=== PATIENT | male | born 1930 | race Hispanic/Latino ===

== ENCOUNTER 2018-08-17 13:59 | Inpatient (IN) | payer MEDICARE, OTHER ==
--- NOTE | 2018-08-17 14:33 | ED PDOC ---
Lower Extremity Pain/Injury Time Seen by Provider: 08/17/18 14:15 Chief Complaint (Nursing): Shortness Of Breath History Per: Family Onset/Duration Of Symptoms: Days (2) Current Symptoms Are (Timing): Still Present Severity: Moderate Additional Complaint(s): Bilat lower ext swelling assoc with SOB worse over past 2 days. 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 Denies chest pain or fever. Past Medical History - Medical History PMH: Anemia, Benign Prostatic Hyperplasia (s), Cardia Arrhythmia, HTN, Hyper cholesterolemia, Chronic Kidney Disease Denies: HIV - Family History Family History: States: Unknown Family Hx - Home Medications Home Medications: Ambulatory Orders Medication Instructions Recorded RX: Aspirin [Ecotrin] 81 mg PO DAILY 07/09/18 RX: Calcitriol [Rocaltrol] 0.25 mcg PO DAILY 07/09/18 RX: Ergocalciferol (Vitamin D2) 50,000 unit PO QWK 07/09/18 [Vitamin D2] RX: Febuxostat [Uloric] 40 mg PO DAILY 07/09/18 RX: Ferrous Sulfate [Feosol] 325 mg PO DAILY 07/09/18 RX: Folic Acid 1 mg PO BID 07/09/18 RX: Hydroxyurea [Hydrea] 500 mg PO ASDIR 07/09/18 RX: Mexiletine 300 mg PO Q8 07/09/18 RX: [place]-3 Fatty Acids/Fish Oil 1 gm PO Q12 07/09/18 [Fish Oil 1,000 mg Capsule] RX: Sevelamer Carbonate [Renvela] 800 mg PO TID 07/09/18 RX: Tamsulosin [Flomax] 0.4 mg PO DAILY 07/09/18 RX: Triamterene/Hydrochlorothiazid 1 cap PO DAILY 07/09/18 [Triamterene-Hctz 37.5-25 mg Cp] RX: Isosorbide Mononitrate ER 30 mg PO DAILY #30 tab 07/13/18 [Imdur ER] Cephalexin [cephalexin] 500 mg PO BID 7 Days #14 cap 08/20/18 RX: Carvedilol [Coreg] 3.125 mg PO Q12 tab 08/20/18 RX: Epoetin Den [Procrit] 4,000 unit SC MWF ml 08/20/18 RX: Finasteride [Proscar] 5 mg PO DAILY tab 08/20/18 RX: Furosemide [Lasix] 40 mg PO DAILY 30 Days #30 tab 08/20/18 RX: Vitamin B Complex/Vit C/Folic 1 tab PO DAILY tab 08/20/18 [Nephro-Terry] - Allergies Allergies/Adverse Reactions: Allergies Allergy/AdvReac Type Severity Reaction Status Date / Time No Known Allergies Allergy Verified 08/17/18 14:04 Review of Systems ROS Statement: Except As Marked, All Systems Reviewed And Found Negative Constitutional: Negative for: Fever Cardiovascular: Negative for: Chest Pain Respiratory: Positive for: Shortness of Breath Musculoskeletal: Positive for: Leg Pain Physical Exam - Reviewed Nursing Documentation Reviewed: Yes Vital Signs Reviewed: Yes - Physical Exam Appears: Positive for: Non-toxic, No Acute Distress Head Exam: Positive for: ATRAUMATIC, NORMAL INSPECTION, NORMOCEPHALIC Skin: Positive for: Normal Color, Warm, DRY Eye Exam: Positive for: EOMI, Normal appearance, PERRL ENT: Positive for: Normal ENT Inspection Neck: Positive for: Normal, Painless ROM Cardiovascular/Chest: Positive for: Regular Rate, Rhythm Respiratory: Positive for: Decreased Breath Sounds (Bases bilat) Gastrointestinal/Abdominal: Positive for: Normal Exam, Soft Back: Positive for: Normal Inspection Extremity: Positive for: Swelling (3+ pitting edema bilat extending to abd. Ulcers left calf with erythemato mid morrison bilat. No calf tenderness.) Neurologic/Psych: Positive for: Alert, Oriented - Laboratory Results Result Diagrams: 08/19/18 04:25 08/20/18 04:20 Disposition - Clinical Impression Clinical Impression: CHF (congestive heart failure), Chronic kidney disease, stage IV (severe), Cellulitis - Patient ED Disposition Is Patient to be Admitted: Transfer of Care - Disposition Disposition: Transfer of Care Disposition Time: 15:00 Condition: FAIR Patient Signed Over To: Jesus Hernandez
--- NOTE | 2018-08-17 15:24 | RAD ---
Date of service: 08/17/2018 HISTORY: cough COMPARISON: Chest radiograph dated 07/13/2018. FINDINGS: LUNGS: Pulmonary vascular congestion. Bibasilar atelectasis. PLEURA: Small bilateral pleural effusions. CARDIOVASCULAR: Aortic atherosclerotic calcifications. Cardiomediastinal silhouette stably enlarged. Pericardial effusion not excluded. OSSEOUS STRUCTURES: Unchanged. VISUALIZED UPPER ABDOMEN: Normal. OTHER FINDINGS: None. IMPRESSION: Pulmonary vascular congestion with small bilateral pleural effusions. Cardiomegaly with pericardial effusion not excluded.
[2018-08-17 15:49] LABS: BASO % 0.5 % (0.0-2.0); EOS % 0.2 % (0.0-4.0); HEMOGLOBIN 10.5 g/dL (12.0-18.0); LYMPH # 0.8 K/uL (1.0-4.3); LYMPH % 15.9 % (20.0-40.0); MEAN CELL VOLUME 101.7 fl (80.0-94.0); MEAN CORPUSCULAR HEMOGLOBIN 33.6 pg (27.0-31.0); MEAN PLATELET VOLUME 7.3 fl (7.2-11.7); MONO # 0.5 K/uL (0.0-0.8); NEUT # 3.9 K/uL (1.8-7.0); NEUT % 73.4 % (50.0-75.0); NRBC % 0.2 % (0.0-0.0); RBC 3.13 Mil/uL (4.40-5.90); RED CELL DISTRIBUTION WIDTH 17.5 % (11.5-14.5); WHITE BLOOD COUNT 5.3 K/uL (4.8-10.8)
[2018-08-17 16:07] LABS: ALB/GLOB RATIO 0.9 (1.0-2.1); ALBUMIN 3.3 g/dL (3.5-5.0); CALCIUM 8.9 mg/dL (8.4-10.2)
--- NOTE | 2018-08-17 18:02 | ED PDOC ---
- Laboratory Results Result Diagrams: 08/17/18 15:30 08/17/18 15:30 - ECG O2 Sat by Pulse Oximetry: 97 Pulse Ox Interpretation: Normal - Radiology X-Ray: Read By Radiologist X-Ray Interpretation: Cardiomegaly (AND PULM CONGESTION) - CT Scan/US US Other Rad Studies (CT/US): Read By Radiologist Other Rad Interpretation: no dvt - Progress ED Course And Treament: 1500: Took over care from Dr. Sherman. Felipe on labs and imaging. Here with leg swelling. 185: Stable. Will need admit for chf exac and cellulitis. Family states similar to previous. No chest pain. 1916: Stable. Spoke with Dr. Elliott. Will admit. Tele. Does not meet sepsis criteria. Disposition Counseled Patient/Family Regarding: Studies Performed, Diagnosis - Clinical Impression Clinical Impression: CHF (congestive heart failure), Chronic kidney disease, stage IV (severe), Cellulitis - POA Present On Arrival: None - Disposition Disposition: Admitted as In-Patient Disposition Time: 19:01 Condition: FAIR Forms: [employer] (Bulgarian)
[2018-08-17] MEDS ORDERED: Clindamycin 600mg/50ml NS 600 MG/50 ML BAG IVPB STA (18:55)
[2018-08-17 19:20] LABS: TROPONIN I 0.057 ng/mL (0.00-0.120)
[2018-08-17] MEDS ORDERED: Ergocalciferol 50,000 Intl Units Cap PO SCH (20:15)
[2018-08-17] MEDS ORDERED: Clindamycin 600mg/50ml D5W 600 MG/50 ML VIAL IVPB STA (20:20)
--- NOTE | 2018-08-17 20:34 | CP.PCM.HP ---
<Von Mae - Last Filed: 08/17/18 21:49> History of Present Illness - History of Present Illness History of Present Illness: 87 yo M with pmhx of Afib, severe CHF: systolic and diastolic dysfunction with EF of 15% and CKD presented to the ED with his son and due to progressive dyspnea and bilateral lower extremity swelling for the past 4 days. Son reports father has been reporting difficulty breathing with productive cough. He used to be ambulatory with a cane and walker while being seen by home care who also provides feet care twice a week, however, he has been refusing to get up from the couch only to use the restroom. Pt denies chest pain, recent fevers Pt denies history of heart catheterization; MT; stroke PMD: Dr. Cannon Nephro: Dr. Schuler Heme/Onc: Dr. Dorothy Cruz Urology: Dr. Ge Cardiology: Dr. Nieves Podiatry: Dr. Osvaldo Bustos hx: denies htn/dm Surg: none Soc: denies smoking, alcohol, illicit drugs; lives with Son (Irwin) and Rx: Reconciled NKDA Full code ED course: Vitals: 97.8, Pulse 93, BP: 132/88; RR: 16 95% on RA -CBC, CMP, Troponin -CXR, Venous Duplex, EKG, Urine dip -O2 nasal nasula, -Rx: ASA 325 mg PO X1, Clinda 600 mg IVPB; Lasix 40 mg IV once -Blood culture Present on Admission - Present on Admission Any Indicators Present on Admission: No History of DVT/PE: No History of Uncontrolled Diabetes: No Urinary Catheter: No Review of Systems - Cardiovascular Cardiovascular: Dyspnea. absent: Chest Pain - Respiratory Respiratory: Dyspnea Past Patient History - Past Medical History & Family History Past Medical History?: Yes - Past Social History Smoking Status: Former Smoker Chewing Tobacco Use: No Cigar Use: No Alcohol: None Drugs: Denies Home Situation {Lives}: With Family - CARDIAC Hx Cardia Arrhythmia: Yes Hx Hypercholesterolemia: Yes Hx Hypertension: Yes - PULMONARY Hx Respiratory Disorders: No - HEENT Hx HEENT Problems: Yes ([place]) - RENAL Hx Chronic Kidney Disease: Yes - HEMATOLOGICAL/ONCOLOGICAL Hx Anemia: Yes Hx Human Immunodeficiency Virus (HIV): No - MUSCULOSKELETAL/RHEUMATOLOGICAL Hx Falls: No - PSYCHIATRIC Hx Substance Use: No - SURGICAL HISTORY Hx Surgeries: Yes Other/Comment: circumcision - ANESTHESIA Hx Anesthesia: No Meds Allergies/Adverse Reactions: Allergies Allergy/AdvReac Type Severity Reaction Status Date / Time No Known Allergies Allergy Verified 08/17/18 14:04 Physical Exam - Constitutional Appears: Non-toxic, No Acute Distress - Eye Exam Eye Exam: EOMI - ENT Exam ENT Exam: Mucous Membranes Moist - Respiratory Exam Respiratory Exam: Rales. absent: Wheezes, Respiratory Distress - Cardiovascular Exam Cardiovascular Exam: Irregular Rhythm, +S1, +S2 - GI/Abdominal Exam GI & Abdominal Exam: Normal Bowel Sounds, Soft. absent: Tenderness Additional comments: lower abdominal anasarca - Extremities Exam Extremities exam: Positive for: pedal edema, tenderness, pedal pulses present. Negative for: calf tenderness Additional comments: Stasis dermatitis bilaterally extending to knees with mild cellulitis of L lower extremity below calf and skin abrasion with clear fluid discharge L lower extremity cranial to ankle with scarring measuring approximately 3-4 cm x 3-4 cm. - Neurological Exam Neurological exam: Abnormal Gait (with assistance), Alert, CN II-XII Intact - Psychiatric Exam Psychiatric exam: Normal Affect, Normal Mood - Skin Skin Exam: Abrasion, Erythema, Warm Results - Vital Signs Recent Vital Signs: Last Vital Signs Temp 97.8 F 08/17/18 14:31 Pulse 93 H 08/17/18 18:40 Resp 16 08/17/18 18:40 BP 130/74 08/17/18 20:18 Pulse Ox 97 08/17/18 19:18 - Labs Result Diagrams: 08/17/18 15:30 08/17/18 15:30 Labs: Laboratory Results - last 24 hr 08/17/18 08/17/18 15:30 15:30 WBC 5.3 RBC 3.13 L Hgb 10.5 L Hct 31.9 L MCV 101.7 H MCH 33.6 H MCHC 33.0 RDW 17.5 H Plt Count 263 MPV 7.3 Neut % (Auto) 73.4 Lymph % (Auto) 15.9 L [place] % (Auto) 10.0 Eos % (Auto) 0.2 Baso % (Auto) 0.5 Neut # (Auto) 3.9 Lymph # (Auto) 0.8 L [place] # (Auto) 0.5 Eos # (Auto) 0.0 Baso # (Auto) 0.0 Sodium 142 Potassium 4.8 Chloride 108 H Carbon Dioxide 24 Anion Gap 15 BUN 98 H Creatinine 2.6 H Est GFR ( Amer) 29 Est GFR (Non-Af Amer) 24 Random Glucose 116 H Calcium 8.9 Total Bilirubin 1.0 AST 39 ALT 28 Alkaline Phosphatase 104 Troponin I 0.0570 NT-Pro-B Natriuret Pep 61772 H Total Protein 6.9 Albumin 3.3 L Globulin 3.7 Albumin/Globulin Ratio 0.9 L Assessment & Plan - Assessment and Plan (Free Text) Assessment: 87 yo M with pmhx of Afib, severe CHF: systolic and diastolic dysfunction with EF of 15% and CKD admitted for sever CHF exacerbation. Severe CHF exacerbation: -Systolic and diastolic dysfunction -EF15% -s/p lasix iv 40 mg x2 -Admit to Tele -Start Lasix iv 40mg q8hr -Cardiology consulted: Dr. London; recommendations appreciated -heart heathy diet with 2g Na and fluid restriction to 1 L/ day -f/u blood culture, procalcitonin, Vitamin B12, BNP, TSH, Stasis dermatitis with mild cellulitis and skin tear -Podiatry consulted: Dr. Lorenzo; recommendations appreciated -Wound care -s/p ER: Clindamycin 300 mg ivpb q8 -Ancef 1 gm ivpb q12; renal adjusted -f/u blood culture, venous duplex Chronic Afib: -Family opted for no anticoagulation -Continue ASA, Imdur -Troponin neg x1; -f/u trops, PT/T AV Block: -Cardiology consulted: Dr. London; recommendations appreciated -Continue: Mexiletine CKD Stage 4: -Nephrology consulted: Dr. Schuler; recommendations appreciated -follow AM labs BPH: -Continue tamulosin, finasteride Low platelets: -Continue Hydroxyurea DVT prophylaxis: -Lovenox 30mg SC qDaily PT eval and treat Case dw Dr. Earl Mae MD PGY2 <Sarina Elliott - Last Filed: 08/17/18 21:52> Results - Vital Signs Recent Vital Signs: Last Vital Signs Temp 98 F 08/17/18 20:35 Pulse 95 H 08/17/18 20:35 Resp 16 08/17/18 21:08 BP 141/76 10/27/18 20:35 Pulse Ox 97 08/17/18 20:35 - Labs Result Diagrams: 08/17/18 15:30 08/17/18 15:30 Labs: Laboratory Results - last 24 hr 08/17/18 08/17/18 15:30 15:30 WBC 5.3 RBC 3.13 L Hgb 10.5 L Hct 31.9 L MCV 101.7 H MCH 33.6 H MCHC 33.0 RDW 17.5 H Plt Count 263 MPV 7.3 Neut % (Auto) 73.4 Lymph % (Auto) 15.9 L [place] % (Auto) 10.0 Eos % (Auto) 0.2 Baso % (Auto) 0.5 Neut # (Auto) 3.9 Lymph # (Auto) 0.8 L [place] # (Auto) 0.5 Eos # (Auto) 0.0 Baso # (Auto) 0.0 Sodium 142 Potassium 4.8 Chloride 108 H Carbon Dioxide 24 Anion Gap 15 BUN 98 H Creatinine 2.6 H Est GFR ( Amer) 29 Est GFR (Non-Af Amer) 24 Random Glucose 116 H Calcium 8.9 Total Bilirubin 1.0 AST 39 ALT 28 Alkaline Phosphatase 104 Troponin I 0.0570 NT-Pro-B Natriuret Pep 96855 H Total Protein 6.9 Albumin 3.3 L Globulin 3.7 Albumin/Globulin Ratio 0.9 L Attending/Attestation - Attestation I have personally seen and examined this patient.: Yes I have fully participated in the care of the patient.: Yes I have reviewed all pertinent clinical information: Yes
[2018-08-17] MEDS ORDERED: ceFAZolin IV 1 gm in Dextrose 1 GM/50 ML BAG IVPB ONE (23:02)
[2018-08-17] MEDS: ceFAZolin 1 GM in Sodium Chloride 0.9% 50 ML IVPB SCH (23:07)
[2018-08-17] MEDS: Omega-3-Acid Ethyl Esters 1 GM Cap PO SCH (23:08)
[2018-08-18] MEDS ORDERED: Clindamycin in NS 300 MG/50 ML BAG IVPB SCH (01:00)
[2018-08-18] MEDS ORDERED: ceFAZolin 1 GM in Sodium Chloride 0.9% 50 ML IVPB SCH (01:00)
[2018-08-18 07:54] LABS: BASO % 0.6 % (0.0-2.0); EOS % 0.4 % (0.0-4.0); HEMOGLOBIN 10.2 g/dL (12.0-18.0); LYMPH # 1.2 K/uL (1.0-4.3); LYMPH % 22.3 % (20.0-40.0); MEAN CELL VOLUME 101.5 fl (80.0-94.0); MEAN CORPUSCULAR HEMOGLOBIN 33.8 pg (27.0-31.0); MEAN CORPUSCULAR HGB CONC 33.3 g/dL (33.0-37.0); MEAN PLATELET VOLUME 7.5 fl (7.2-11.7); MONO # 0.7 K/uL (0.0-0.8); MONO % 11.9 % (0.0-10.0); NEUT # 3.5 K/uL (1.8-7.0); NEUT % 64.8 % (50.0-75.0); NRBC % 0.4 % (0.0-0.0); RBC 3.01 Mil/uL (4.40-5.90); RED CELL DISTRIBUTION WIDTH 17.4 % (11.5-14.5); WHITE BLOOD COUNT 5.5 K/uL (4.8-10.8)
[2018-08-18] MEDS: ceFAZolin 1 GM in Sodium Chloride 0.9% 50 ML IVPB SCH ×2 (08:18→21:57)
[2018-08-18 08:22] LABS: INR 1.6; PROTHROMBIN TIME 17.9 Seconds (9.8-13.1)
[2018-08-18] MEDS: Omega-3-Acid Ethyl Esters 1 GM Cap PO SCH ×2 (08:23→22:00)
[2018-08-18 08:24] LABS: PARTIAL THROMBOPLASTIN TIME 31.9 Seconds (25.6-37.1)
--- NOTE | 2018-08-18 08:36 | US ---
Date of service: 08/17/2018 PROCEDURE: Bilateral lower extremity venous duplex Doppler. HISTORY: Bilat swelling COMPARISON: Bilateral lower extremity venous duplex ultrasound performed 07/09/2018. TECHNIQUE: Bilateral common femoral, superficial femoral, popliteal and posterior tibial veins were evaluated. Flow was assessed with color Doppler, compressibility, assessment of phasic flow and augmentation response. FINDINGS: COMMON FEMORAL VEIN: Right CFV: Unremarkable. Left CFV: Unremarkable. SUPERFICIAL FEMORAL VEIN: Right SFV: Unremarkable. Left SFV: Unremarkable. POPLITEAL VEIN: Right Popliteal: Unremarkable. Left Popliteal: Unremarkable. POSTERIOR TIBIAL VEIN: Right PTV: Unremarkable. Left PTV: Unremarkable. OTHER FINDINGS: None. IMPRESSION: No evidence of deep venous thrombosis.
[2018-08-18 08:52] LABS: CALCIUM 8.7 mg/dL (8.4-10.2)
--- NOTE | 2018-08-18 09:17 | CP.PCM.PN ---
Addendum entered and electronically signed by Joycelyn Rodriguez MD 08/18/18 11:55: Patient seen and examined bedside. All chart and clinical data reviewed . Case discussed with resident . Agree with assessment and plan. Patient is elderly , frail male 87 y/o with extensive PMH HTN , CHF systolic dysfunction EF 15 % with guarded prognosis, chronic anemia,CKD stage IV , chronic Afib, LE stasis dermatitis presented with worsening dyspnea and edema of LE with erythema . Patient admitted to telemetry with CHF exacerbation and mild cellulitis of LE. At present feeling well Continue diuretics 40 Mgg IV Q18 hours He has a guarded prognosis due to comorbidities Continue IV Ancef for lower extremity cellulitis with stasis dermatitis Original Note: Subjective - Date & Time of Evaluation Date of Evaluation: 08/18/18 Time of Evaluation: 08:05 - Subjective Subjective: [place] serbian translation [id number] Patient seen and examined bedside walking with nurse coming from bathroom. Reports feeling better. Denies cough, SOB. Reports bilateral swelling legs but not pain. no overnight events. vs stable. Objective - Vital Signs/Intake and Output Vital Signs (last 24 hours): Temp Pulse Resp BP Pulse Ox 97.3 F L 86 18 124/82 99 08/18/18 08:00 08/18/18 08:24 08/18/18 08:00 08/18/18 08:24 08/18/18 08:00 Intake and Output: 08/18/18 08/18/18 06:59 18:59 Intake Total 50 Balance 50 - Medications Medications: Current Medications Aspirin (Ecotrin) 81 mg PO DAILY [facility] Last Admin: 08/18/18 08:20 Dose: 81 mg Calcitriol (Rocaltrol) 0.25 mcg PO DAILY [facility] Last Admin: 08/18/18 08:25 Dose: 0.25 mcg Enoxaparin Sodium (Lovenox) 30 mg SC DAILY [facility]; Protocol Ergocalciferol (Drisdol 50,000 Intl Units Cap) 1 cap PO QWK [facility] Ferrous Sulfate (Feosol) 325 mg PO DAILY [facility] Last Admin: 08/18/18 08:21 Dose: 325 mg Finasteride (Proscar) 5 mg PO DAILY [facility] Last Admin: 08/18/18 08:25 Dose: 5 mg Folic Acid (Folic Acid) 1 mg PO DAILY [facility] Last Admin: 08/18/18 08:21 Dose: 1 mg Furosemide (Lasix) 40 mg IV Q8 [facility] Last Admin: 08/18/18 08:22 Dose: 40 mg Home Med (Febuxostat [Uloric]) 40 mg PO DAILY [facility] Hydroxyurea (Hydrea) 500 mg PO DAILY [facility] Last Admin: 08/18/18 08:22 Dose: 500 mg Cefazolin Sodium 1 gm/ Sodium (Chloride) 50 mls @ 50 mls/hr IVPB Q12 [facility]; Protocol Last Admin: 08/18/18 08:18 Dose: 50 mls/hr Isosorbide Mononitrate (Imdur Er) 30 mg PO DAILY [facility] Last Admin: 08/18/18 08:22 Dose: 30 mg Mexiletine HCl (Mexiletine) 150 mg PO Q8 [facility] Last Admin: 08/18/18 08:24 Dose: 150 mg Swbh[place]-6-Qlon Ethyl Esters (Lovaza) 1 gm PO Q12 [facility] Last Admin: 08/18/18 08:23 Dose: 1 gm Sevelamer Carbonate (Renvela) 800 mg PO TID [facility] Last Admin: 08/18/18 08:25 Dose: 800 mg Tamsulosin HCl (Flomax) 0.4 mg PO DAILY [facility] Last Admin: 08/18/18 08:21 Dose: 0.4 mg - Labs Labs: 08/18/18 06:00 08/18/18 06:00 PT 17.9 Seconds (9.8-13.1) H 08/18/18 06:00 INR 1.6 08/18/18 06:00 APTT 31.9 Seconds (25.6-37.1) 08/18/18 06:00 - Constitutional Appears: No Acute Distress - Respiratory Exam Respiratory Exam: absent: Rales, Rhonchi Additional comments: scattered rales bibasal - Cardiovascular Exam Cardiovascular Exam: Irregular Rhythm - GI/Abdominal Exam GI & Abdominal Exam: Soft, Normal Bowel Sounds - Extremities Exam Extremities Exam: Pedal Edema (2+ with cellulitis ) - Neurological Exam Neurological Exam: Alert, Awake - Psychiatric Exam Psychiatric exam: Normal Affect - Skin Additional comments: Stasis dermatitis with mild cellulitis and skin tear over left lateral calf region Assessment and Plan - Assessment and Plan (Free Text) Plan: 87 yo M with pmhx of Afib, severe CHF: systolic and diastolic dysfunction with EF of 15% and CKD admitted for sever CHF exacerbation and bilateral leg cellulitis 1)Severe CHF exacerbation: -Systolic and diastolic dysfunction -EF15% -s/p lasix iv 40 mg x2 -Admit to Tele -c/w Lasix iv 40mg q8hr -Cardiology consulted: Dr. London; recommendations appreciated -heart heathy diet with 2g Na and fluid restriction to 1 L/ day -procalcitonin 27 400 -f/u blood culture, , Vitamin B12, TSH 6 -f/u free t4 2)Stasis dermatitis with mild cellulitis and skin tear -Podiatry consulted: Dr. Lorenzo; recommendations appreciated -Wound care -s/p ER: Clindamycin 300 mg ivpb q8 -Ancef 1 gm ivpb q12; renal adjusted -venous duplex no DVT -f/u blood culture 3)Chronic Afib: -Family opted for no anticoagulation -Continue ASA, Imdur -Troponin neg x1; 4)AV Block: -Cardiology consulted: Dr. London; recommendations appreciated -Continue: Mexiletine 5) CKD Stage 4: -Nephrology consulted: Dr. Schuler; recommendations appreciated - 6)BPH: -Continue tamulosin, finasteride 7)DVT prophylaxis: -Lovenox 30mg SC qDaily PT eval and treat
[2018-08-18] MEDS: Enoxaparin 30 mg Syringe SC SCH (10:48)
--- NOTE | 2018-08-18 12:43 | CP.PCM.CON ---
History of Present Illness - History of Present Illness History of Present Illness: NEPHROLOGY CONSULT 87 yo M with pmhx of CKD4, HTN, CHF that presented to ER w/ dsypnea, LE edema and redness in b/l LE's. Family had reported that he has had difficulty w/ breathing and cough. He is hard of hearing and getting history was very difficult. He was recently admitted for CHF exacerbation. He is still eating per nursing staff. No reported emesis ros: a full detailed ROS is negative except as in my HPI Family hx: denies esrd Surg: none Soc: denies smoking, alcohol, illicit drugs; lives with Son (Irwin) and see below pmh: below meds: as below NKDA PE: VS as below gen: nad sclera: anicteric op: clear neck :supple no thyromegaly cv: +s1+s2 no rub lungs: reduced at bases abd: soft nt/nd/ no organomegaly ext: 2+ edema w/ redness skin: redness b/l le psych: nml affect neuro: follows commands no focal defecity labs and imaging reviewed imp: ARF/ Anemia/ Azotemia/ Acute on Chronic systolic heart failure/ Secondary hyperpara/cellulitis plan: cr is at baseline but azotemia is worsened likely due to cardiorenal. Would recc reduce lasix to q 12 instead of q8 as currently oxygenating ok. Discussed w/ cardiology bedside who is ok with. will check UA and urine lytes, and urine protein. will check renal and bladder US given hx of BPH to r/o retention no emergent indications for HD but will monitor closely avoid hypotension Not clear why he is on hydrea? if any protein in urine - please check SPEP w/ IF and SFLC. check pth check phos dose abx for reduced egfr Past Patient History - Past Medical History & Family History Past Medical History?: Yes - Past Social History Smoking Status: Never Smoked - CARDIAC Hx Cardiac Disorders: Yes Hx Cardia Arrhythmia: Yes Hx Hypercholesterolemia: Yes Hx Hypertension: Yes - PULMONARY Hx Respiratory Disorders: No - NEUROLOGICAL Hx Neurological Disorder: No - HEENT Hx HEENT Problems: Yes ([place]) - RENAL Hx Chronic Kidney Disease: Yes - ENDOCRINE/METABOLIC Hx Endocrine Disorders: No - HEMATOLOGICAL/ONCOLOGICAL Hx Blood Disorders: Yes Hx Anemia: Yes Hx Human Immunodeficiency Virus (HIV): No - INTEGUMENTARY Hx Dermatological Problems: No - MUSCULOSKELETAL/RHEUMATOLOGICAL Hx Musculoskeletal Disorders: No Hx Falls: No - GASTROINTESTINAL Hx Gastrointestinal Disorders: No - GENITOURINARY/GYNECOLOGICAL Hx Genitourinary Disorders: No - PSYCHIATRIC Hx Psychophysiologic Disorder: No Hx Substance Use: No - SURGICAL HISTORY Hx Surgeries: Yes Other/Comment: circumcision - ANESTHESIA Hx Anesthesia: No Hx Anesthesia Reactions: No Meds Allergies/Adverse Reactions: Allergies Allergy/AdvReac Type Severity Reaction Status Date / Time No Known Allergies Allergy Verified 08/17/18 14:04 - Medications Medications: Current Medications Aspirin (Ecotrin) 81 mg PO DAILY [facility] Last Admin: 08/18/18 08:20 Dose: 81 mg Calcitriol (Rocaltrol) 0.25 mcg PO DAILY [facility] Last Admin: 08/18/18 08:25 Dose: 0.25 mcg Enoxaparin Sodium (Lovenox) 30 mg SC DAILY [facility]; Protocol Last Admin: 08/18/18 10:48 Dose: 30 mg Ergocalciferol (Drisdol 50,000 Intl Units Cap) 1 cap PO QWK [facility] Ferrous Sulfate (Feosol) 325 mg PO DAILY [facility] Last Admin: 08/18/18 08:21 Dose: 325 mg Finasteride (Proscar) 5 mg PO DAILY [facility] Last Admin: 08/18/18 08:25 Dose: 5 mg Folic Acid (Folic Acid) 1 mg PO DAILY [facility] Last Admin: 08/18/18 08:21 Dose: 1 mg Furosemide (Lasix) 40 mg IV Q8 [facility] Last Admin: 08/18/18 08:22 Dose: 40 mg Home Med (Febuxostat [Uloric]) 40 mg PO DAILY [facility] Hydroxyurea (Hydrea) 500 mg PO DAILY [facility] Last Admin: 08/18/18 08:22 Dose: 500 mg Cefazolin Sodium 1 gm/ Sodium (Chloride) 50 mls @ 50 mls/hr IVPB Q12 [facility]; Protocol Last Admin: 08/18/18 08:18 Dose: 50 mls/hr Isosorbide Mononitrate (Imdur Er) 30 mg PO DAILY [facility] Last Admin: 08/18/18 08:22 Dose: 30 mg Mexiletine HCl (Mexiletine) 150 mg PO Q8 [facility] Last Admin: 08/18/18 08:24 Dose: 150 mg Eaetv-2-Yzaw Ethyl Esters (Lovaza) 1 gm PO Q12 [facility] Last Admin: 08/18/18 08:23 Dose: 1 gm Sevelamer Carbonate (Renvela) 800 mg PO TID [facility] Last Admin: 08/18/18 12:36 Dose: 800 mg Tamsulosin HCl (Flomax) 0.4 mg PO DAILY [facility] Last Admin: 08/18/18 08:21 Dose: 0.4 mg Results - Vital Signs Recent Vital Signs: Last Vital Signs Temp 97.5 F L 08/18/18 12:34 Pulse 76 08/18/18 12:34 Resp 18 08/18/18 12:34 BP 135/74 08/18/18 12:34 Pulse Ox 96 08/18/18 12:34 - Labs Result Diagrams: 08/18/18 06:00 08/18/18 06:00 Labs: Laboratory Results - last 24 hr 08/17/18 08/17/18 08/18/18 15:30 15:30 06:00 WBC 5.3 5.5 RBC 3.13 L 3.01 L Hgb 10.5 L 10.2 L Hct 31.9 L 30.5 L MCV 101.7 H 101.5 H MCH 33.6 H 33.8 H MCHC 33.0 33.3 RDW 17.5 H 17.4 H Plt Count 263 281 MPV 7.3 7.5 Neut % (Auto) 73.4 64.8 Lymph % (Auto) 15.9 L 22.3 [place] % (Auto) 10.0 11.9 H Eos % (Auto) 0.2 0.4 Baso % (Auto) 0.5 0.6 Neut # (Auto) 3.9 3.5 Lymph # (Auto) 0.8 L 1.2 [place] # (Auto) 0.5 0.7 Eos # (Auto) 0.0 0.0 Baso # (Auto) 0.0 0.0 PT INR APTT Sodium 142 Potassium 4.8 Chloride 108 H Carbon Dioxide 24 Anion Gap 15 BUN 98 H Creatinine 2.6 H Est GFR ( Amer) 29 Est GFR (Non-Af Amer) 24 Random Glucose 116 H Calcium 8.9 Total Bilirubin 1.0 AST 39 ALT 28 Alkaline Phosphatase 104 Troponin I 0.0570 NT-Pro-B Natriuret Pep 51485 H Total Protein 6.9 Albumin 3.3 L Globulin 3.7 Albumin/Globulin Ratio 0.9 L Vitamin B12 TSH 3rd Generation 08/18/18 08/18/18 06:00 06:00 WBC RBC Hgb Hct MCV MCH MCHC RDW Plt Count MPV Neut % (Auto) Lymph % (Auto) [place] % (Auto) Eos % (Auto) Baso % (Auto) Neut # (Auto) Lymph # (Auto) [place] # (Auto) Eos # (Auto) Baso # (Auto) PT 17.9 H INR 1.6 APTT 31.9 Sodium 142 Potassium 4.4 Chloride 106 Carbon Dioxide 25 Anion Gap 15 BUN 103 H* Creatinine 2.6 H Est GFR ( Amer) 29 Est GFR (Non-Af Amer) 24 Random Glucose 97 Calcium 8.7 Total Bilirubin AST ALT Alkaline Phosphatase Troponin I NT-Pro-B Natriuret Pep 00416 H Total Protein Albumin Globulin Albumin/Globulin Ratio Vitamin B12 582 TSH 3rd Generation 6.77 H
--- NOTE | 2018-08-18 13:34 | CP.PCM.CON ---
History of Present Illness - History of Present Illness History of Present Illness: THE PATIENT IS AN 87 YEAR OLD MALE WITH A HISTORY OF CARDIOMYOPATHY, HYPERTENSION, STAGE 4 CRF AND BPH. HE WAS ADMITTED TO [facility] LAST MONTH FOR ACUTE SYSTOLIC CHF. HE HAD AN ECHOCARDIOGRAM THAT SHOWED A LVEF OF ~ 15-20%. HE HAD LEG EDEMA LAST MONTH WITH BILAT LE CELLULITIS. HE NOW HAD HAD INCREASING SOB FOR THE PAST FEW DAYS THAT HAS RESULTED IN HIM BEING LESS ACTIVE WITH MOSTLY SITTING IN A CHAIR. HE WAS BROUGHT INTO THE ER AND FOUND TO BE IN CHF AND WAS ADMITTED. I WAS ASKED TO SEE HIM. HE DENIES CHEST PAIN AND IS STATES HE HAS LESS SOB TODAY AFTER O2 AND IV FUROSEMIDE Past Patient History - Past Medical History & Family History Past Medical History?: Yes - Past Social History Smoking Status: Never Smoked - CARDIAC Hx Cardiac Disorders: Yes Hx Cardia Arrhythmia: Yes Hx Hypercholesterolemia: Yes Hx Hypertension: Yes - PULMONARY Hx Respiratory Disorders: No - NEUROLOGICAL Hx Neurological Disorder: No - HEENT Hx HEENT Problems: Yes ([place]) - RENAL Hx Chronic Kidney Disease: Yes - ENDOCRINE/METABOLIC Hx Endocrine Disorders: No - HEMATOLOGICAL/ONCOLOGICAL Hx Blood Disorders: Yes Hx Anemia: Yes Hx Human Immunodeficiency Virus (HIV): No - INTEGUMENTARY Hx Dermatological Problems: No - MUSCULOSKELETAL/RHEUMATOLOGICAL Hx Musculoskeletal Disorders: No Hx Falls: No - GASTROINTESTINAL Hx Gastrointestinal Disorders: No - GENITOURINARY/GYNECOLOGICAL Hx Genitourinary Disorders: No - PSYCHIATRIC Hx Psychophysiologic Disorder: No Hx Substance Use: No - SURGICAL HISTORY Hx Surgeries: Yes Other/Comment: circumcision - ANESTHESIA Hx Anesthesia: No Hx Anesthesia Reactions: No Meds Allergies/Adverse Reactions: Allergies Allergy/AdvReac Type Severity Reaction Status Date / Time No Known Allergies Allergy Verified 08/17/18 14:04 - Medications Medications: Current Medications Aspirin (Ecotrin) 81 mg PO DAILY [facility] Last Admin: 08/18/18 08:20 Dose: 81 mg Calcitriol (Rocaltrol) 0.25 mcg PO DAILY [facility] Last Admin: 08/18/18 08:25 Dose: 0.25 mcg Enoxaparin Sodium (Lovenox) 30 mg SC DAILY [facility]; Protocol Last Admin: 08/18/18 10:48 Dose: 30 mg Ergocalciferol (Drisdol 50,000 Intl Units Cap) 1 cap PO QWK [facility] Ferrous Sulfate (Feosol) 325 mg PO DAILY [facility] Last Admin: 08/18/18 08:21 Dose: 325 mg Finasteride (Proscar) 5 mg PO DAILY [facility] Last Admin: 08/18/18 08:25 Dose: 5 mg Folic Acid (Folic Acid) 1 mg PO DAILY [facility] Last Admin: 08/18/18 08:21 Dose: 1 mg Furosemide (Lasix) 40 mg IV Q12 [facility] Home Med (Febuxostat [Uloric]) 40 mg PO DAILY [facility] Hydroxyurea (Hydrea) 500 mg PO DAILY [facility] Last Admin: 08/18/18 08:22 Dose: 500 mg Cefazolin Sodium 1 gm/ Sodium (Chloride) 50 mls @ 50 mls/hr IVPB Q12 [facility]; Protocol Last Admin: 08/18/18 08:18 Dose: 50 mls/hr Isosorbide Mononitrate (Imdur Er) 30 mg PO DAILY [facility] Last Admin: 08/18/18 08:22 Dose: 30 mg Mexiletine HCl (Mexiletine) 150 mg PO Q8 [facility] Last Admin: 08/18/18 08:24 Dose: 150 mg Vdiyx-8-Zmpa Ethyl Esters (Lovaza) 1 gm PO Q12 [facility] Last Admin: 08/18/18 08:23 Dose: 1 gm Sevelamer Carbonate (Renvela) 800 mg PO TID [facility] Last Admin: 08/18/18 12:36 Dose: 800 mg Tamsulosin HCl (Flomax) 0.4 mg PO DAILY [facility] Last Admin: 08/18/18 08:21 Dose: 0.4 mg Physical Exam - Respiratory Exam Respiratory Exam: Decreased Breath Sounds, Rales - Cardiovascular Exam Cardiovascular Exam: Irregular Rhythm, +S1, +S2 - Extremities Exam Additional comments: ~ 3+ BILATERAL LE EDEMA WITH WARMTH AND REDNESS IN BOTH LE - Additional Findings Additional findings: EKG AND [employer] WITH ATRIAL FIBRILLATION TROPONIN NORMAL ELEVATED PBNP CXR WITH PULMONARY CONGESTION Results - Vital Signs Recent Vital Signs: Last Vital Signs Temp 97.5 F L 08/18/18 12:34 Pulse 76 08/18/18 12:34 Resp 18 08/18/18 12:34 BP 135/74 08/18/18 12:34 Pulse Ox 96 08/18/18 12:34 - Labs Result Diagrams: 08/18/18 06:00 08/18/18 06:00 Labs: Laboratory Results - last 24 hr 08/17/18 08/17/18 08/18/18 15:30 15:30 06:00 WBC 5.3 5.5 RBC 3.13 L 3.01 L Hgb 10.5 L 10.2 L Hct 31.9 L 30.5 L MCV 101.7 H 101.5 H MCH 33.6 H 33.8 H MCHC 33.0 33.3 RDW 17.5 H 17.4 H Plt Count 263 281 MPV 7.3 7.5 Neut % (Auto) 73.4 64.8 Lymph % (Auto) 15.9 L 22.3 [place] % (Auto) 10.0 11.9 H Eos % (Auto) 0.2 0.4 Baso % (Auto) 0.5 0.6 Neut # (Auto) 3.9 3.5 Lymph # (Auto) 0.8 L 1.2 [place] # (Auto) 0.5 0.7 Eos # (Auto) 0.0 0.0 Baso # (Auto) 0.0 0.0 PT INR APTT Sodium 142 Potassium 4.8 Chloride 108 H Carbon Dioxide 24 Anion Gap 15 BUN 98 H Creatinine 2.6 H Est GFR ( Amer) 29 Est GFR (Non-Af Amer) 24 Random Glucose 116 H Calcium 8.9 Total Bilirubin 1.0 AST 39 ALT 28 Alkaline Phosphatase 104 Troponin I 0.0570 NT-Pro-B Natriuret Pep 60169 H Total Protein 6.9 Albumin 3.3 L Globulin 3.7 Albumin/Globulin Ratio 0.9 L Vitamin B12 Free T4 TSH 3rd Generation 08/18/18 08/18/18 08/18/18 06:00 06:00 12:00 WBC RBC Hgb Hct MCV MCH MCHC RDW Plt Count MPV Neut % (Auto) Lymph % (Auto) [place] % (Auto) Eos % (Auto) Baso % (Auto) Neut # (Auto) Lymph # (Auto) [place] # (Auto) Eos # (Auto) Baso # (Auto) PT 17.9 H INR 1.6 APTT 31.9 Sodium 142 Potassium 4.4 Chloride 106 Carbon Dioxide 25 Anion Gap 15 BUN 103 H* Creatinine 2.6 H Est GFR ( Amer) 29 Est GFR (Non-Af Amer) 24 Random Glucose 97 Calcium 8.7 Total Bilirubin AST ALT Alkaline Phosphatase Troponin I NT-Pro-B Natriuret Pep 61966 H Total Protein Albumin Globulin Albumin/Globulin Ratio Vitamin B12 582 Free T4 1.15 TSH 3rd Generation 6.77 H Assessment & Plan - Assessment and Plan (Free Text) Assessment: CARDIOMYOPATHY WITH ACUTE ON CHRONIC SYSTOLIC CHF ATRIAL FIBRILLATION HYPERTENSION ACUTE ON CHRONIC RENAL FAILURE BILAT LE CELLULITIS Plan: THE PATIENT WAS ADMITTED TO 4N ON TELEMETRY O2, CARVEDILOL, IV FUROSEMIDE, IMDUR, LOVENOX, MEXILITINE, ASPIRIN AND IV ANTIBIOTICS THE FAMILY DOESN'T WANT CHRONIC ANTICOAGULATIOM FOR ATRIAL FIBRILLATION JEFFREY INHIBITORS NOT GIVEN DUE TO CRF DISCUSSED WITH NEPHROLOGY BEFORE
--- NOTE | 2018-08-18 14:01 | CARD ---
APPROVED REPORT Date of service: 08/17/2018 EKG Measurement Heart [id number] <Conclusion> Atrial fibrillation with rapid ventricular rhythm Left bundle branch block Abnormal ECG
--- NOTE | 2018-08-18 15:41 | US ---
Date of service: 08/18/2018 PROCEDURE: Ultrasound of the Kidneys HISTORY: arf COMPARISON: Renal ultrasound dated 07/10/2018. TECHNIQUE: Sonogram of the kidneys. FINDINGS: RIGHT KIDNEY: Measures: 7.9 x 4.6 x 4.8 cm. Multiple stable cysts, the largest is in the mid/upper pole and measures 1.8 x 1.2 x 1.8 cm. Normal in size and contour. Stable increased cortical echogenicity. No stone, solid mass lesion or hydronephrosis visualized. LEFT KIDNEY: Measures: 8.7 x 4.1 x 4.2 cm. Stable lower pole cyst measuring 2.1 x 1.4 x 1.9 cm. Normal in size and contour. Stable increased cortical echogenicity. No stone, solid mass lesion or hydronephrosis visualized. OTHER FINDINGS: Prevoid urinary bladder volume measures 254.2 mL. Patient unable to void. Small amount of perihepatic and perisplenic ascites. IMPRESSION: No significant interval change. Bilateral increased cortical echogenicity compatible with medical renal disease. Stable bilateral renal cysts. Prevoid urinary bladder volume measures 254 mL. Patient unable to void.
--- NOTE | 2018-08-18 18:07 | CP.PCM.PN ---
Subjective - Date & Time of Evaluation Date of Evaluation: 08/18/18 Time of Evaluation: 18:06 - Subjective Subjective: Podiatry consult note for Dr. Riley, 87 yo M with pmhx of Afib, severe CHF: systolic and diastolic dysfunction with EF of 15% and CKD seen on the floor with his son and due to progressive dyspnea and bilateral lower extremity swelling for the past 4 days. Son reports father has been reporting difficulty breathing with productive cough. Denies pain in the lower extremity. Denies f/n/v/sob/. 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 Family hx: denies htn/dm Surg: none Soc: denies smoking, alcohol, illicit drugs; lives with Son (Irwin) and NKDA Objective - Vital Signs/Intake and Output Vital Signs (last 24 hours): Temp Pulse Resp BP Pulse Ox 97.8 F 87 16 129/78 99 08/18/18 17:21 08/18/18 17:21 08/18/18 17:21 08/18/18 17:21 08/18/18 17:21 Intake and Output: 08/18/18 08/18/18 06:59 18:59 Intake Total 170 Output Total 500 Balance -330 - Medications Medications: Current Medications Aspirin (Ecotrin) 81 mg PO DAILY [facility] Last Admin: 08/18/18 08:20 Dose: 81 mg Calcitriol (Rocaltrol) 0.25 mcg PO DAILY [facility] Last Admin: 08/18/18 08:25 Dose: 0.25 mcg Carvedilol (Coreg) 3.125 mg PO Q12 [facility] Enoxaparin Sodium (Lovenox) 30 mg SC DAILY [facility]; Protocol Last Admin: 08/18/18 10:48 Dose: 30 mg Ergocalciferol (Drisdol 50,000 Intl Units Cap) 1 cap PO QWK [facility] Ferrous Sulfate (Feosol) 325 mg PO DAILY [facility] Last Admin: 08/18/18 08:21 Dose: 325 mg Finasteride (Proscar) 5 mg PO DAILY [facility] Last Admin: 08/18/18 08:25 Dose: 5 mg Folic Acid (Folic Acid) 1 mg PO DAILY [facility] Last Admin: 08/18/18 08:21 Dose: 1 mg Furosemide (Lasix) 40 mg IV Q12 [facility] Home Med (Febuxostat [Uloric]) 40 mg PO DAILY [facility] Last Admin: 08/18/18 17:02 Dose: 40 mg Hydroxyurea (Hydrea) 500 mg PO DAILY [facility] Last Admin: 08/18/18 08:22 Dose: 500 mg Cefazolin Sodium 1 gm/ Sodium (Chloride) 50 mls @ 50 mls/hr IVPB Q12 [facility]; Protocol Last Admin: 08/18/18 08:18 Dose: 50 mls/hr Isosorbide Mononitrate (Imdur Er) 30 mg PO DAILY [facility] Last Admin: 08/18/18 08:22 Dose: 30 mg Mexiletine HCl (Mexiletine) 150 mg PO Q8 [facility] Last Admin: 08/18/18 16:16 Dose: 150 mg Qtvcj-8-Woyp Ethyl Esters (Lovaza) 1 gm PO Q12 [facility] Last Admin: 08/18/18 08:23 Dose: 1 gm Sevelamer Carbonate (Renvela) 800 mg PO TID [facility] Last Admin: 08/18/18 17:01 Dose: 800 mg Tamsulosin HCl (Flomax) 0.4 mg PO DAILY [facility] Last Admin: 08/18/18 08:21 Dose: 0.4 mg - Labs Labs: 08/18/18 06:00 08/18/18 06:00 PT 17.9 Seconds (9.8-13.1) H 08/18/18 06:00 INR 1.6 08/18/18 06:00 APTT 31.9 Seconds (25.6-37.1) 08/18/18 06:00 - Constitutional Appears: Well, Non-toxic, No Acute Distress - Head Exam Head Exam: ATRAUMATIC, NORMOCEPHALIC - Extremities Exam Additional comments: Bilateral lower extremity exam: Bilateral Lower Extremity exam VASC: DP and PT 1/4 bilaterally due to pedal edema, TG less than 3 seconds X 10, TG warm to warm bilaterally with +3 pitting edema noted pretibial b/l NEURO: diminished sensation DERM: b/l LE edema and erythema from ankles up to mid legs, tender and warm to touch, superficial ulcerations with active serous drainage noted on the left leg on the posterior upper 1/3rd of the leg, and lateral mid leg, no malodor, no probe to bone or tendon, no tracking or tunneling noted. no open wounds on the right lower extremity ortho: pain on palpation to the wounds. - Neurological Exam Neurological Exam: Alert, Awake - Psychiatric Exam Psychiatric exam: Normal Affect - Skin Skin Exam: Normal Color Assessment and Plan - Assessment and Plan (Free Text) Assessment: 87 yo male seen and evaluated at bedside for weeping wounds on the left lower extremity secondary to venous insufficiency and b/l leg cellulitis Plan: 87 yo male seen and evaluated Chart, labs and vitals reviewed; afebrile and absent leukocytosis Left leg wounds culture taken and ordered Patient left lower extremity dressed with betadine soaked DSD venous duplex reviewed: no DVT Continue IV antibiotics podiatry will continue to follow the patient daily while in house thank you for the consult
[2018-08-18 20:21] LABS: SQUAMOUS EPITHIAL < 1 /hpf (0-5); URINE BILIRUBIN NEGATIVE (NEGATIVE); URINE BLOOD NEGATIVE (NEGATIVE); URINE CLARITY CLEAR (Clear); URINE COLOR YELLOW (YELLOW); URINE GLUCOSE (UA) NEG (Normal); URINE HYALINE CAST 0-2 /hpf (0-2); URINE LEUKOCYTE ESTERASE NEG Leu/uL (Negative); URINE PROTEIN NEGATIVE (NEGATIVE); URINE UROBILINOGEN 0.2-1.0 mg/dL (0.2-1.0)
[2018-08-18 20:31] LABS: CREATININE, RANDOM URINE 25.1 mg/dL
[2018-08-19 05:32] LABS: BASO % 0.7 % (0.0-2.0); EOS % 0.9 % (0.0-4.0); HEMOGLOBIN 9.4 g/dL (12.0-18.0); LYMPH # 0.6 K/uL (1.0-4.3); LYMPH % 16.9 % (20.0-40.0); MEAN CELL VOLUME 100.5 fl (80.0-94.0); MEAN CORPUSCULAR HEMOGLOBIN 34.3 pg (27.0-31.0); MEAN CORPUSCULAR HGB CONC 34.1 g/dL (33.0-37.0); MEAN PLATELET VOLUME 7.3 fl (7.2-11.7); MONO # 0.4 K/uL (0.0-0.8); MONO % 11.3 % (0.0-10.0); NEUT # 2.5 K/uL (1.8-7.0); NEUT % 70.2 % (50.0-75.0); NRBC % 0.2 % (0.0-0.0); RBC 2.73 Mil/uL (4.40-5.90); RED CELL DISTRIBUTION WIDTH 17.1 % (11.5-14.5); WHITE BLOOD COUNT 3.5 K/uL (4.8-10.8)
[2018-08-19 06:20] LABS: CALCIUM 8.4 mg/dL (8.4-10.2)
[2018-08-19] MEDS: Omega-3-Acid Ethyl Esters 1 GM Cap PO SCH ×2 (08:50→21:21)
[2018-08-19] MEDS: ceFAZolin 1 GM in Sodium Chloride 0.9% 50 ML IVPB SCH ×2 (08:54→21:15)
[2018-08-19] MEDS: Enoxaparin 30 mg Syringe SC SCH (09:01)
--- NOTE | 2018-08-19 10:32 | CP.PCM.PN ---
Subjective - Date & Time of Evaluation Date of Evaluation: 08/19/18 Time of Evaluation: 10:20 - Subjective Subjective: STATES HE FEELS A LITTLE BETTER BREATHING A LITTLE BETTER Objective - Vital Signs/Intake and Output Vital Signs (last 24 hours): Temp Pulse Resp BP Pulse Ox 97.2 F L 83 18 114/71 94 L 08/19/18 08:22 08/19/18 09:02 08/19/18 08:22 08/19/18 09:02 08/19/18 08:22 - Medications Medications: Current Medications Aspirin (Ecotrin) 81 mg PO DAILY [facility] Last Admin: 08/19/18 08:51 Dose: 81 mg Calcitriol (Rocaltrol) 0.25 mcg PO DAILY [facility] Last Admin: 08/19/18 08:49 Dose: 0.25 mcg Carvedilol (Coreg) 3.125 mg PO Q12 [facility] Last Admin: 08/19/18 08:51 Dose: 3.125 mg Enoxaparin Sodium (Lovenox) 30 mg SC DAILY [facility]; Protocol Last Admin: 08/19/18 09:01 Dose: 30 mg Ergocalciferol (Drisdol 50,000 Intl Units Cap) 1 cap PO QWK [facility] Ferrous Sulfate (Feosol) 325 mg PO DAILY [facility] Last Admin: 08/19/18 08:49 Dose: 325 mg Finasteride (Proscar) 5 mg PO DAILY [facility] Last Admin: 08/19/18 08:49 Dose: 5 mg Folic Acid (Folic Acid) 1 mg PO DAILY [facility] Last Admin: 08/19/18 08:49 Dose: 1 mg Furosemide (Lasix) 40 mg IV Q12 [facility] Last Admin: 08/19/18 08:51 Dose: 40 mg Home Med (Febuxostat [Uloric]) 40 mg PO DAILY [facility] Last Admin: 08/19/18 08:49 Dose: 40 mg Hydroxyurea (Hydrea) 500 mg PO DAILY [facility] Last Admin: 08/18/18 08:22 Dose: 500 mg Cefazolin Sodium 1 gm/ Sodium (Chloride) 50 mls @ 50 mls/hr IVPB Q12 [facility]; Protocol Last Admin: 08/19/18 08:54 Dose: 50 mls/hr Isosorbide Mononitrate (Imdur Er) 30 mg PO DAILY [facility] Last Admin: 08/18/18 08:22 Dose: 30 mg Mexiletine HCl (Mexiletine) 150 mg PO Q8 [facility] Last Admin: 08/19/18 09:02 Dose: 150 mg Lsjgn-5-Arug Ethyl Esters (Lovaza) 1 gm PO Q12 [facility] Last Admin: 08/19/18 08:50 Dose: 1 gm Sevelamer Carbonate (Renvela) 800 mg PO TID [facility] Last Admin: 08/19/18 08:49 Dose: 800 mg Tamsulosin HCl (Flomax) 0.4 mg PO DAILY [facility] Last Admin: 08/19/18 08:51 Dose: 0.4 mg - Labs Labs: 08/19/18 04:25 08/19/18 04:25 PT 17.9 Seconds (9.8-13.1) H 08/18/18 06:00 INR 1.6 08/18/18 06:00 APTT 31.9 Seconds (25.6-37.1) 08/18/18 06:00 - Respiratory Exam Respiratory Exam: Decreased Breath Sounds, Rales - Cardiovascular Exam Cardiovascular Exam: Irregular Rhythm, +S1, +S2 - Extremities Exam Additional comments: BOTH LE STILL RED AND HOT EDEMA DECREASED TO ~ 2+ BILAT - Additional Findings Additional findings: BUN/CR 104/2.7 NEPHROLOGY SPOKEN TO AND CONSULT REVIEWED PODIATRY NOTES REVIEWED Assessment and Plan - Assessment and Plan (Free Text) Assessment: ACUTE ON CHRONIC SYSTOLIC CHF ATRIAL FIBRILLATION HYPERTENSION JUAN JOSE ON TOP OF STAGE 4 CRF BILATERAL LE CELLULITIS Plan: CONTINUE FUROSEMIDE, CARVEDILOL, NITRATES, MEXILITINE, ASPIRIN, LOVENOX AND ANTIBIOTICS
[2018-08-19] MEDS ORDERED: Epoetin Alfa 4000 UNIT/ML Inj SC SCH (11:00)
--- NOTE | 2018-08-19 14:45 | CP.PCM.PN ---
Subjective - Date & Time of Evaluation Date of Evaluation: 08/19/18 Time of Evaluation: 14:42 - Subjective Subjective: NEPHROLOGY FOLLOW UP 87 yo M with pmhx of CKD4, HTN, CHF that presented to ER w/ dsypnea, LE edema and redness in b/l LE's. Family had reported that he has had difficulty w/ breathing and cough. He is hard of hearing and getting history was very difficult. He was recently admitted for CHF exacerbation. He is still eating per nursing staff. No reported emesis ros: unable to obtain much from pt. used court interpreter services as well but still unable. Family hx: denies esrd Surg: none Soc: denies smoking, alcohol, illicit drugs; lives with Son (Irwin) and see below pmh: below meds: as below NKDA PE: VS as below gen: nad sclera: anicteric op: clear neck :supple no thyromegaly cv: +s1+s2 no rub lungs: reduced at bases abd: soft nt/nd/ no organomegaly ext: 2+ edema w/ redness skin: redness b/l le psych: nml affect neuro: follows commands no focal defecity labs and imaging reviewed imp: ARF/ Anemia/ Azotemia/ Acute on Chronic systolic heart failure/ Secondary hyperpara/cellulitis/CKD 4 plan: continue with lasix will check UA and urine lytes, and urine protein. will check renal and bladder US given hx of BPH to r/o retention no emergent indications for HD but will monitor closely avoid hypotension Not clear why he is on hydrea? check SPEP w/ IF and SFLC. last pth 122 at goal for his GFR hence can d/c calcitriol. check vit D level, pt on weekly Vit D anemia work up, added epogen dose abx for reduced egfr Objective - Vital Signs/Intake and Output Vital Signs (last 24 hours): Temp Pulse Resp BP Pulse Ox 97.4 F L 77 18 111/67 95 08/19/18 12:18 08/19/18 13:40 08/19/18 12:18 08/19/18 12:18 08/19/18 13:40 - Medications Medications: Current Medications Aspirin (Ecotrin) 81 mg PO DAILY [facility] Last Admin: 08/19/18 08:51 Dose: 81 mg Carvedilol (Coreg) 3.125 mg PO Q12 [facility] Last Admin: 08/19/18 08:51 Dose: 3.125 mg Enoxaparin Sodium (Lovenox) 30 mg SC DAILY [facility]; Protocol Last Admin: 08/19/18 09:01 Dose: 30 mg Epoetin Den (Procrit) 4,000 unit SC MWF [facility] Last Admin: 08/19/18 12:23 Dose: 4,000 unit Ergocalciferol (Drisdol 50,000 Intl Units Cap) 1 cap PO QWK [facility] Ferrous Sulfate (Feosol) 325 mg PO DAILY [facility] Last Admin: 08/19/18 08:49 Dose: 325 mg Finasteride (Proscar) 5 mg PO DAILY [facility] Last Admin: 08/19/18 08:49 Dose: 5 mg Folic Acid (Folic Acid) 1 mg PO DAILY [facility] Last Admin: 08/19/18 08:49 Dose: 1 mg Furosemide (Lasix) 40 mg IV Q12 [facility] Last Admin: 08/19/18 08:51 Dose: 40 mg Home Med (Febuxostat [Uloric]) 40 mg PO DAILY [facility] Last Admin: 08/19/18 08:49 Dose: 40 mg Hydroxyurea (Hydrea) 500 mg PO DAILY [facility] Last Admin: 08/19/18 14:16 Dose: 500 mg Cefazolin Sodium 1 gm/ Sodium (Chloride) 50 mls @ 50 mls/hr IVPB Q12 [facility]; Protocol Last Admin: 08/19/18 08:54 Dose: 50 mls/hr Isosorbide Mononitrate (Imdur Er) 30 mg PO DAILY [facility] Last Admin: 08/19/18 14:16 Dose: 30 mg Mexiletine HCl (Mexiletine) 150 mg PO Q8 [facility] Last Admin: 08/19/18 09:02 Dose: 150 mg Obhlf-8-Ukct Ethyl Esters (Lovaza) 1 gm PO Q12 [facility] Last Admin: 08/19/18 08:50 Dose: 1 gm Sevelamer Carbonate (Renvela) 800 mg PO TID [facility] Last Admin: 08/19/18 14:16 Dose: 800 mg Tamsulosin HCl (Flomax) 0.4 mg PO DAILY [facility] Last Admin: 08/19/18 08:51 Dose: 0.4 mg Vitamin B Complex/Vit C/Folic Acid (Nephro-Terry) 1 tab PO DAILY [facility] - Labs Labs: 08/19/18 04:25 08/19/18 04:25 PT 17.9 Seconds (9.8-13.1) H 08/18/18 06:00 INR 1.6 08/18/18 06:00 APTT 31.9 Seconds (25.6-37.1) 08/18/18 06:00
--- NOTE | 2018-08-19 15:01 | CP.PCM.PN ---
Subjective - Date & Time of Evaluation Date of Evaluation: 08/19/18 Time of Evaluation: 09:00 - Subjective Subjective: No acute overnight events. Slept well, denies fevers, chills, SOB, chest pain, nausea, vomiting, diarrhea, constipation, dysuria. Pt able to ambulate to the bathroom. Ate breakfast. Objective - Vital Signs/Intake and Output Vital Signs (last 24 hours): Temp Pulse Resp BP Pulse Ox 97.4 F L 77 18 111/67 95 08/19/18 12:18 08/19/18 13:40 08/19/18 12:18 08/19/18 12:18 08/19/18 13:40 - Medications Medications: Current Medications Aspirin (Ecotrin) 81 mg PO DAILY [facility] Last Admin: 08/19/18 08:51 Dose: 81 mg Carvedilol (Coreg) 3.125 mg PO Q12 [facility] Last Admin: 08/19/18 08:51 Dose: 3.125 mg Enoxaparin Sodium (Lovenox) 30 mg SC DAILY [facility]; Protocol Last Admin: 08/19/18 09:01 Dose: 30 mg Epoetin Den (Procrit) 4,000 unit SC MWF [facility] Last Admin: 08/19/18 12:23 Dose: 4,000 unit Ergocalciferol (Drisdol 50,000 Intl Units Cap) 1 cap PO QWK [facility] Ferrous Sulfate (Feosol) 325 mg PO DAILY [facility] Last Admin: 08/19/18 08:49 Dose: 325 mg Finasteride (Proscar) 5 mg PO DAILY [facility] Last Admin: 08/19/18 08:49 Dose: 5 mg Folic Acid (Folic Acid) 1 mg PO DAILY [facility] Last Admin: 08/19/18 08:49 Dose: 1 mg Furosemide (Lasix) 40 mg IV Q12 [facility] Last Admin: 08/19/18 08:51 Dose: 40 mg Home Med (Febuxostat [Uloric]) 40 mg PO DAILY [facility] Last Admin: 08/19/18 08:49 Dose: 40 mg Hydroxyurea (Hydrea) 500 mg PO DAILY [facility] Last Admin: 08/19/18 14:16 Dose: 500 mg Cefazolin Sodium 1 gm/ Sodium (Chloride) 50 mls @ 50 mls/hr IVPB Q12 [facility]; Protocol Last Admin: 08/19/18 08:54 Dose: 50 mls/hr Isosorbide Mononitrate (Imdur Er) 30 mg PO DAILY [facility] Last Admin: 08/19/18 14:16 Dose: 30 mg Mexiletine HCl (Mexiletine) 150 mg PO Q8 [facility] Last Admin: 08/19/18 09:02 Dose: 150 mg Lhlzd-8-Nwpe Ethyl Esters (Lovaza) 1 gm PO Q12 [facility] Last Admin: 08/19/18 08:50 Dose: 1 gm Sevelamer Carbonate (Renvela) 800 mg PO TID [facility] Last Admin: 08/19/18 14:16 Dose: 800 mg Tamsulosin HCl (Flomax) 0.4 mg PO DAILY [facility] Last Admin: 08/19/18 08:51 Dose: 0.4 mg Vitamin B Complex/Vit C/Folic Acid (Nephro-Terry) 1 tab PO DAILY [facility] - Labs Labs: 08/19/18 04:25 08/19/18 04:25 PT 17.9 Seconds (9.8-13.1) H 08/18/18 06:00 INR 1.6 08/18/18 06:00 APTT 31.9 Seconds (25.6-37.1) 08/18/18 06:00 - Constitutional Appears: Non-toxic, No Acute Distress - Head Exam Head Exam: ATRAUMATIC, NORMAL INSPECTION, NORMOCEPHALIC - Eye Exam Eye Exam: EOMI, Normal appearance, PERRL - ENT Exam ENT Exam: Mucous Membranes Moist - Respiratory Exam Respiratory Exam: Clear to Ausculation Bilateral, NORMAL BREATHING PATTERN - Cardiovascular Exam Cardiovascular Exam: RRR, +S1, +S2 - GI/Abdominal Exam GI & Abdominal Exam: Soft, Normal Bowel Sounds - Extremities Exam Extremities Exam: Pedal Edema Additional comments: LLE Stasis dermatitis with mild cellulitis and skin tear, edema, warm, wrapped in bandage clean, dry, no drainage or blood noted. RLE Stasis dermatitis with mild cellulitis, edema, warm. - Neurological Exam Neurological Exam: Alert, Awake, Oriented x3 Assessment and Plan - Assessment and Plan (Free Text) Assessment: 87 yo M with pmhx of Afib, severe CHF: systolic and diastolic dysfunction with EF of 15% and CKD admitted for severe CHF exacerbation and bilateral leg cellulitis. 1)Severe CHF exacerbation: -Systolic and diastolic dysfunction -EF15% -c/w Lasix IV 40mg q12 -Cardiology consulted: Dr. London; recommendations appreciated -heart heathy diet with 2g Na and fluid restriction to 1 L/ day, Carvedilol -procalcitonin low 0.11, BNP- 32475 -Blood culture- no growth @24hrs, U/A-negative, -TSH-6, Free T4-normal, Vitamin [id number] -PT eval and treat- recommends skilled PT -Possible Subacute rehab tomorrow 2)Stasis dermatitis with mild LE cellulitis and skin tear -Podiatry consulted: Dr. Lorenzo; recommendations appreciated -Wound care -Left Leg- Wound Cx-Results pending, Gram Stain-Gram + cocci, no polymorphic WBC -s/p ER: Clindamycin 300 mg ivpb q8 -Ancef 1 gm ivpb q12; renal adjusted Day #2 -venous duplex no DVT -Blood culture- no growth @24hrs 3)Chronic Afib: -Family opted for no anticoagulation -Continue ASA, Imdur -Troponin neg x1; 4)Azotemia 2/2 to Diuretic - Decreased Lasix to 40mg Q12 5)AV Block: -Cardiology consulted: Dr. London; recommendations appreciated -Continue: Mexiletine 6) CKD Stage 4: -Nephrology consulted: Dr. Schuler; recommendations appreciated -Renal/bladder U/S 7)BPH: -Continue tamulosin, finasteride 8)DVT prophylaxis: -Lovenox 30mg SC qDaily
--- NOTE | 2018-08-19 16:35 | CP.PCM.PN ---
Subjective - Date & Time of Evaluation Date of Evaluation: 08/19/18 Time of Evaluation: 11:00 - Subjective Subjective: Podiatry progress note for Dr. Riley 87 yo male seen and evaluated at bedside, with Dr. Riley, for weeping wounds on the LLE secondary to venous insufficiency and b/l leg cellulitis; resolving. Patient is AAOx3 and in NAD. He states that his legs are in mild pain. Patient denies N/V/F/SOB. Objective - Vital Signs/Intake and Output Vital Signs (last 24 hours): Temp Pulse Resp BP Pulse Ox 97.4 F L 77 18 111/67 95 08/19/18 12:18 08/19/18 13:40 08/19/18 12:18 08/19/18 12:18 08/19/18 13:40 - Medications Medications: Current Medications Aspirin (Ecotrin) 81 mg PO DAILY [facility] Last Admin: 08/19/18 08:51 Dose: 81 mg Carvedilol (Coreg) 3.125 mg PO Q12 [facility] Last Admin: 08/19/18 08:51 Dose: 3.125 mg Enoxaparin Sodium (Lovenox) 30 mg SC DAILY [facility]; Protocol Last Admin: 08/19/18 09:01 Dose: 30 mg Epoetin Den (Procrit) 4,000 unit SC MWF [facility] Last Admin: 08/19/18 12:23 Dose: 4,000 unit Ergocalciferol (Drisdol 50,000 Intl Units Cap) 1 cap PO QWK [facility] Ferrous Sulfate (Feosol) 325 mg PO DAILY [facility] Last Admin: 08/19/18 08:49 Dose: 325 mg Finasteride (Proscar) 5 mg PO DAILY [facility] Last Admin: 08/19/18 08:49 Dose: 5 mg Folic Acid (Folic Acid) 1 mg PO DAILY [facility] Last Admin: 08/19/18 08:49 Dose: 1 mg Furosemide (Lasix) 40 mg IV Q12 [facility] Last Admin: 08/19/18 08:51 Dose: 40 mg Home Med (Febuxostat [Uloric]) 40 mg PO DAILY [facility] Last Admin: 08/19/18 08:49 Dose: 40 mg Hydroxyurea (Hydrea) 500 mg PO DAILY [facility] Last Admin: 08/19/18 14:16 Dose: 500 mg Cefazolin Sodium 1 gm/ Sodium (Chloride) 50 mls @ 50 mls/hr IVPB Q12 [facility]; Protocol Last Admin: 08/19/18 08:54 Dose: 50 mls/hr Isosorbide Mononitrate (Imdur Er) 30 mg PO DAILY [facility] Last Admin: 08/19/18 14:16 Dose: 30 mg Mexiletine HCl (Mexiletine) 150 mg PO Q8 [facility] Last Admin: 08/19/18 09:02 Dose: 150 mg Ihzbb-3-Yynf Ethyl Esters (Lovaza) 1 gm PO Q12 [facility] Last Admin: 08/19/18 08:50 Dose: 1 gm Sevelamer Carbonate (Renvela) 800 mg PO TID [facility] Last Admin: 08/19/18 14:16 Dose: 800 mg Tamsulosin HCl (Flomax) 0.4 mg PO DAILY [facility] Last Admin: 08/19/18 08:51 Dose: 0.4 mg Vitamin B Complex/Vit C/Folic Acid (Nephro-Terry) 1 tab PO DAILY [facility] - Labs Labs: 08/19/18 04:25 08/19/18 04:25 PT 17.9 Seconds (9.8-13.1) H 08/18/18 06:00 INR 1.6 08/18/18 06:00 APTT 31.9 Seconds (25.6-37.1) 08/18/18 06:00 - Constitutional Appears: Well, Non-toxic, No Acute Distress - Head Exam Head Exam: ATRAUMATIC, NORMOCEPHALIC - Extremities Exam Additional comments: Bilateral Lower Extremity exam Vasc: DP and PT 1/4 bilaterally due to pedal edema, TG less than 3 seconds X 10, TG warm to warm bilaterally with +2 pitting edema to malleolar region Ortho: pain on palpation to the wounds. Neuro: diminished sensation, gross sensation intact Derm: b/l LE edema and erythema from ankles up to mid legs, tender and warm to touch, superficial ulcerations with active serous drainage noted on the left leg on the posterior upper 1/3rd of the leg, and lateral mid leg, no malodor, no probe to bone or tendon, no tracking or tunneling noted. no open wounds on the right lower extremity - Neurological Exam Neurological Exam: Alert, Awake, Oriented x3 - Psychiatric Exam Psychiatric exam: Normal Affect, Normal Mood Assessment and Plan - Assessment and Plan (Free Text) Assessment: 87 yo male seen and evaluated at bedside for weeping wounds on the LLE secondary to venous insufficiency and b/l leg cellulitis Plan: Patient seen and evaluated at bedside with Dr. Riley Afebrile, absent leukocytosis Left leg wounds culture taken; results pending Local wound care; LLE: adaptic, DSD, JEFFREY, RLE: JEFFREY Silvadene ordered for LLE Venous duplex reviewed: no DVT Continue IV antibiotics Will continue to follow
[2018-08-20 06:16] LABS: CALCIUM 8.3 mg/dL (8.4-10.2)
[2018-08-20 06:27] LABS: FERRITIN 66.6 ng/Ml (17.9-464)
--- NOTE | 2018-08-20 07:32 | CP.PCM.PN ---
Subjective - Date & Time of Evaluation Date of Evaluation: 08/20/18 Time of Evaluation: 07:32 - Subjective Subjective: Podiatry progress note for Dr. Riley 87 yo male seen and evaluated at bedside for bilateral leg cellulitis with left superficial ulcerations; resolving. Patient is AAOx3, NAD, and denies any acute events overnight. Patient states that he took off his JEFFREY wraps last night because he didn't like the way they felt. No new pedal complaints. Patient denies N/V/F. Objective - Vital Signs/Intake and Output Vital Signs (last 24 hours): Temp Pulse Resp BP Pulse Ox 97.3 F L 65 18 116/61 96 08/20/18 05:03 08/20/18 05:03 08/20/18 05:03 08/20/18 05:03 08/20/18 05:03 - Medications Medications: Current Medications Aspirin (Ecotrin) 81 mg PO DAILY [facility] Last Admin: 08/19/18 08:51 Dose: 81 mg Carvedilol (Coreg) 3.125 mg PO Q12 [facility] Last Admin: 08/19/18 21:20 Dose: 3.125 mg Enoxaparin Sodium (Lovenox) 30 mg SC DAILY [facility]; Protocol Last Admin: 08/19/18 09:01 Dose: 30 mg Epoetin Den (Procrit) 4,000 unit SC MWF [facility] Last Admin: 08/19/18 12:23 Dose: 4,000 unit Ergocalciferol (Drisdol 50,000 Intl Units Cap) 1 cap PO QWK [facility] Ferrous Sulfate (Feosol) 325 mg PO DAILY [facility] Last Admin: 08/19/18 08:49 Dose: 325 mg Finasteride (Proscar) 5 mg PO DAILY [facility] Last Admin: 08/19/18 08:49 Dose: 5 mg Folic Acid (Folic Acid) 1 mg PO DAILY [facility] Last Admin: 08/19/18 08:49 Dose: 1 mg Furosemide (Lasix) 40 mg IV Q12 [facility] Last Admin: 08/19/18 21:21 Dose: 40 mg Home Med (Febuxostat [Uloric]) 40 mg PO DAILY [facility] Last Admin: 08/19/18 08:49 Dose: 40 mg Hydroxyurea (Hydrea) 500 mg PO DAILY [facility] Last Admin: 08/19/18 14:16 Dose: 500 mg Cefazolin Sodium 1 gm/ Sodium (Chloride) 50 mls @ 50 mls/hr IVPB Q12 [facility]; Protocol Last Admin: 08/19/18 21:15 Dose: 50 mls/hr Isosorbide Mononitrate (Imdur Er) 30 mg PO DAILY [facility] Last Admin: 08/19/18 14:16 Dose: 30 mg Mexiletine HCl (Mexiletine) 150 mg PO Q8 [facility] Last Admin: 08/20/18 01:00 Dose: 150 mg Iufro-4-Rcmw Ethyl Esters (Lovaza) 1 gm PO Q12 [facility] Last Admin: 08/19/18 21:21 Dose: 1 gm Sevelamer Carbonate (Renvela) 800 mg PO TID [facility] Last Admin: 08/19/18 18:30 Dose: 800 mg Silver Sulfadiazine (Silvadene 1% 20 Gm) 1 ea TOP DAILY [facility] Tamsulosin HCl (Flomax) 0.4 mg PO DAILY [facility] Last Admin: 08/19/18 08:51 Dose: 0.4 mg Vitamin B Complex/Vit C/Folic Acid (Nephro-Terry) 1 tab PO DAILY [facility] - Labs Labs: 08/19/18 04:25 08/20/18 04:20 PT 17.9 Seconds (9.8-13.1) H 08/18/18 06:00 INR 1.6 08/18/18 06:00 APTT 31.9 Seconds (25.6-37.1) 08/18/18 06:00 - Constitutional Appears: Well, Non-toxic, No Acute Distress - Head Exam Head Exam: ATRAUMATIC, NORMOCEPHALIC - Extremities Exam Additional comments: Bilateral Lower Extremity exam Vasc: DP and PT 1/4 bilaterally due to pedal edema, TG less than 3 seconds X 10, TG warm to warm bilaterally with +2 pitting edema to malleolar region Ortho: pain on palpation to the wounds. Neuro: diminished sensation, gross sensation intact Derm: b/l LE edema and erythema from ankles up to mid legs, tender and warm to touch, superficial ulcerations with active serous drainage noted on the left leg on the posterior upper 1/3rd of the leg, and lateral mid leg, no malodor, no probe to bone or tendon, no tracking or tunneling noted. - Neurological Exam Neurological Exam: Alert, Awake, Oriented x3 - Psychiatric Exam Psychiatric exam: Normal Affect, Normal Mood Assessment and Plan - Assessment and Plan (Free Text) Assessment: 87 yo male seen and evaluated at bedside for bilateral leg cellulitis with left superficial ulcerations secondary to venous insufficiency; resolving. Plan: Patient seen and evaluated at bedside Discussed patient plan with Dr. Osvaldo TILLMAN, WBC 3.5 Left leg wounds culture; gram - chaira, gram + cocci Local wound care; LLE: rell anderson, DSD, JEFFREY, RLE: JEFFREY No surgical intervention, patient stable from podiatry standpoint Venous duplex reviewed: no DVT appreciated Continue IV antibiotics; Cefazolin 1gm Q12 Will continue to follow while in house
[2018-08-20] MEDS: Omega-3-Acid Ethyl Esters 1 GM Cap PO SCH (09:00)
[2018-08-20] MEDS ORDERED: Multivitamin Vitamin B Complex (Nephro-Vite) Tab PO SCH (09:00)
[2018-08-20] MEDS ORDERED: Silver Sulfadiazine 1% Cream (20 gm) TOP SCH (09:00)
[2018-08-20] MEDS: Enoxaparin 30 mg Syringe SC SCH (09:01)
[2018-08-20] MEDS: ceFAZolin 1 GM in Sodium Chloride 0.9% 50 ML IVPB SCH (09:05)
--- NOTE | 2018-08-20 10:13 | CP.PCM.PN ---
Subjective - Date & Time of Evaluation Date of Evaluation: 08/20/18 Time of Evaluation: 10:14 - Subjective Subjective: Voyce: [id number] No acute overnight events. Slept well, tried to remove his padmini bandage, denies fevers, chills, SOB, chest pain, nausea, vomiting, diarrhea, constipation, dysuria. Pt able to ambulate to the bathroom. Ate breakfast. Guarded prognosis. Objective - Vital Signs/Intake and Output Vital Signs (last 24 hours): Temp Pulse Resp BP Pulse Ox 97.7 F 70 18 113/66 94 L 08/20/18 08:09 08/20/18 09:02 08/20/18 08:09 08/20/18 09:03 08/20/18 08:09 - Medications Medications: Current Medications Aspirin (Ecotrin) 81 mg PO DAILY [facility] Last Admin: 08/20/18 09:00 Dose: 81 mg Carvedilol (Coreg) 3.125 mg PO Q12 [facility] Last Admin: 08/20/18 09:02 Dose: 3.125 mg Enoxaparin Sodium (Lovenox) 30 mg SC DAILY [facility]; Protocol Last Admin: 08/20/18 09:01 Dose: 30 mg Epoetin Den (Procrit) 4,000 unit SC MWF [facility] Last Admin: 08/19/18 12:23 Dose: 4,000 unit Ergocalciferol (Drisdol 50,000 Intl Units Cap) 1 cap PO QWK [facility] Ferrous Sulfate (Feosol) 325 mg PO DAILY [facility] Last Admin: 08/20/18 09:00 Dose: 325 mg Finasteride (Proscar) 5 mg PO DAILY [facility] Last Admin: 08/20/18 08:59 Dose: 5 mg Folic Acid (Folic Acid) 1 mg PO DAILY [facility] Last Admin: 08/20/18 09:02 Dose: 1 mg Furosemide (Lasix) 40 mg IV Q12 [facility] Last Admin: 08/20/18 09:03 Dose: 40 mg Home Med (Febuxostat [Uloric]) 40 mg PO DAILY [facility] Last Admin: 08/20/18 08:59 Dose: 40 mg Hydroxyurea (Hydrea) 500 mg PO DAILY [facility] Last Admin: 08/20/18 08:59 Dose: 500 mg Cefazolin Sodium 1 gm/ Sodium (Chloride) 50 mls @ 50 mls/hr IVPB Q12 [facility]; Protocol Last Admin: 08/20/18 09:05 Dose: 50 mls/hr Isosorbide Mononitrate (Imdur Er) 30 mg PO DAILY [facility] Last Admin: 08/20/18 09:02 Dose: 30 mg Mexiletine HCl (Mexiletine) 150 mg PO Q8 [facility] Last Admin: 08/20/18 09:00 Dose: 150 mg Avibg-0-Omln Ethyl Esters (Lovaza) 1 gm PO Q12 [facility] Last Admin: 08/20/18 09:00 Dose: 1 gm Sevelamer Carbonate (Renvela) 800 mg PO TID [facility] Last Admin: 08/20/18 09:00 Dose: 800 mg Silver Sulfadiazine (Silvadene 1% 20 Gm) 1 ea TOP DAILY [facility] Last Admin: 08/20/18 09:01 Dose: 1 applic Tamsulosin HCl (Flomax) 0.4 mg PO DAILY [facility] Last Admin: 08/20/18 09:00 Dose: 0.4 mg Vitamin B Complex/Vit C/Folic Acid (Nephro-Terry) 1 tab PO DAILY [facility] Last Admin: 08/20/18 09:00 Dose: 1 tab - Labs Labs: 08/19/18 04:25 08/20/18 04:20 PT 17.9 Seconds (9.8-13.1) H 08/18/18 06:00 INR 1.6 08/18/18 06:00 APTT 31.9 Seconds (25.6-37.1) 08/18/18 06:00 - Constitutional Appears: Non-toxic, No Acute Distress - Head Exam Head Exam: ATRAUMATIC, NORMAL INSPECTION, NORMOCEPHALIC - Eye Exam Eye Exam: EOMI, Normal appearance - ENT Exam ENT Exam: Mucous Membranes Moist - Respiratory Exam Respiratory Exam: Rales (Mild noted L lung), NORMAL BREATHING PATTERN - Cardiovascular Exam Cardiovascular Exam: RRR, +S1, +S2 - GI/Abdominal Exam GI & Abdominal Exam: Soft, Normal Bowel Sounds - Extremities Exam Extremities Exam: Normal Inspection, Pedal Edema Additional comments: LLE Stasis dermatitis with mild cellulitis and skin tear, edema, warm, wrapped in padmini bandage clean, dry, no drainage or blood noted. RLE Stasis dermatitis with mild cellulitis, edema, warm - Neurological Exam Neurological Exam: Alert, Awake, Oriented x3 Assessment and Plan - Assessment and Plan (Free Text) Assessment: 87 yo M with pmhx of Afib, severe CHF: systolic and diastolic dysfunction with EF of 15% and CKD admitted for severe CHF exacerbation and bilateral leg cellulitis. 1)Severe CHF exacerbation: -Systolic and diastolic dysfunction -EF15% -c/w Lasix IV 40mg q12 -Cardiology consulted: Dr. London; recommendations appreciated -heart heathy diet with 2g Na and fluid restriction to 1 L/ day, Carvedilol -procalcitonin low 0.11, BNP- 78819 -Blood culture- no growth @48hrs, U/A-negative, -TSH-6, Free T4-normal, Vitamin [id number] -PT eval and treat- recommends skilled PT -Possible Subacute rehab today 2)Stasis dermatitis with mild LE cellulitis and skin tear -Podiatry consulted: Dr. Lorenzo; recommendations appreciated -Wound care -Wound Cx prelim-Gram Negative Xavi, Gram + cocci -Gram Stain-Gram + cocci, no polymorphic WBC -s/p ER: Clindamycin 300 mg ivpb q8 -Ancef 1 gm ivpb q12; renal adjusted Day #3 -venous duplex no DVT -Blood culture- no growth @48hrs 3)Chronic Afib: -Family opted for no anticoagulation and no AICD -Continue ASA, Imdur -Troponin neg x1; 4)Azotemia 2/2 to Diuretic - c/w Lasix 40mg Q12 5)AV Block: -Cardiology consulted: Dr. London; recommendations appreciated -Continue: Mexiletine 6) CKD Stage 4: -Nephrology consulted: Dr. Schuler; recommendations appreciated -Renal/bladder U/S 7)BPH: -Continue tamulosin, finasteride 8) Essential Thrombocytosis -Hydroxyurea 9)DVT prophylaxis: -Lovenox 30mg SC qDaily
--- NOTE | 2018-08-20 11:31 | CP.PCM.PN ---
Subjective - Date & Time of Evaluation Date of Evaluation: 08/20/18 Time of Evaluation: 10:45 - Subjective Subjective: NO CHEST PAIN LESS SOB Objective - Vital Signs/Intake and Output Vital Signs (last 24 hours): Temp Pulse Resp BP Pulse Ox 97 F L 70 18 113/66 94 L 08/20/18 09:00 08/20/18 09:02 08/20/18 09:00 08/20/18 09:03 08/20/18 09:00 - Medications Medications: Current Medications Aspirin (Ecotrin) 81 mg PO DAILY [facility] OF [facility] Last Admin: 08/20/18 09:00 Dose: 81 mg Carvedilol (Coreg) 3.125 mg PO Q12 [facility] Last Admin: 08/20/18 09:02 Dose: 3.125 mg Enoxaparin Sodium (Lovenox) 30 mg SC DAILY [facility]; Protocol Last Admin: 08/20/18 09:01 Dose: 30 mg Epoetin Den (Procrit) 4,000 unit SC MWF [facility] Last Admin: 08/19/18 12:23 Dose: 4,000 unit Ergocalciferol (Drisdol 50,000 Intl Units Cap) 1 cap PO QWK [facility] OF [facility] Ferrous Sulfate (Feosol) 325 mg PO DAILY [facility] Last Admin: 08/20/18 09:00 Dose: 325 mg Finasteride (Proscar) 5 mg PO DAILY [facility] Last Admin: 08/20/18 08:59 Dose: 5 mg Folic Acid (Folic Acid) 1 mg PO DAILY [facility] Last Admin: 08/20/18 09:02 Dose: 1 mg Furosemide (Lasix) 40 mg IV Q12 [facility] Last Admin: 08/20/18 09:03 Dose: 40 mg Home Med (Febuxostat [Uloric]) 40 mg PO DAILY [facility] Last Admin: 08/20/18 08:59 Dose: 40 mg Hydroxyurea (Hydrea) 500 mg PO DAILY [facility] Last Admin: 08/20/18 08:59 Dose: 500 mg Cefazolin Sodium 1 gm/ Sodium (Chloride) 50 mls @ 50 mls/hr IVPB Q12 [facility]; Protocol Last Admin: 08/20/18 09:05 Dose: 50 mls/hr Isosorbide Mononitrate (Imdur Er) 30 mg PO DAILY [facility] Last Admin: 08/20/18 09:02 Dose: 30 mg Mexiletine HCl (Mexiletine) 150 mg PO Q8 [facility] Last Admin: 08/20/18 09:00 Dose: 150 mg Wbghp-1-Arlf Ethyl Esters (Lovaza) 1 gm PO Q12 [facility] Last Admin: 08/20/18 09:00 Dose: 1 gm Sevelamer Carbonate (Renvela) 800 mg PO TID [facility] Last Admin: 08/20/18 09:00 Dose: 800 mg Silver Sulfadiazine (Silvadene 1% 20 Gm) 1 ea TOP DAILY [facility] Last Admin: 08/20/18 09:01 Dose: 1 applic Tamsulosin HCl (Flomax) 0.4 mg PO DAILY [facility] Last Admin: 08/20/18 09:00 Dose: 0.4 mg Vitamin B Complex/Vit C/Folic Acid (Nephro-Terry) 1 tab PO DAILY [facility] Last Admin: 08/20/18 09:00 Dose: 1 tab - Labs Labs: 08/19/18 04:25 08/20/18 04:20 PT 17.9 Seconds (9.8-13.1) H 08/18/18 06:00 INR 1.6 08/18/18 06:00 APTT 31.9 Seconds (25.6-37.1) 08/18/18 06:00 - Respiratory Exam Respiratory Exam: Decreased Breath Sounds - Cardiovascular Exam Cardiovascular Exam: Irregular Rhythm, +S1, +S2 - Extremities Exam Additional comments: BILATERAL LE EDEMA HAS DECREASED TO ~ 1+ SKIN STILL WITH CELLULITIS Assessment and Plan - Assessment and Plan (Free Text) Assessment: CHRONIC SYSTOLIC CHF ATRIAL FIBRILLATION HYPERTENSION STAGE 4 CRF BILAT LE CELLULITIS Plan: CONTINUE O2, IV FUROSEMIDE, CARVEDILOL, NITRATES, ASPIRIN, LOVENOX AND MEXILITINE THE DAUGHTER IS ASKING IF HEMODIALYSIS CAN POSSIBLY HELP HIM FROM REACCUMULATING FLUID AND ALLOW HIM TO LIVE MORE COMFORTABLY CARDIAC CATH AND AICD DISCUSSED AGAIN BUT DECLINED
--- NOTE | 2018-08-20 13:42 | CP.PCM.DIS ---
Provider - Provider Date of Admission: 08/17/18 19:16 Attending physician: Sarina Elliott MD Primary care physician: Dr. Cannon Consults: Cardiology- Dr. [place] Nephrology- Dr. Schuler Podiatry- Dr. Lorenzo Time Spent in preparation of Discharge (in minutes): 15 Diagnosis - Discharge Diagnosis (1) CHF (congestive heart failure) Status: Acute Comment: Pt going to subacute rehab, medically optimized, Lasix 40 QD (2) Chronic kidney disease, stage IV (severe) Status: Chronic Comment: Pt going to subacute rehab, medically optimized, Lasix 40 QD (3) Cellulitis, leg Status: Acute Comment: Pt going to subacute rehab, continue Ancef (4) A-fib Status: Acute Comment: -C/w [facility] Hospital Course - Lab Results Lab Results: Micro Results 08/18/18 20:09 Leg - Left Gram Stain - Final 08/18/18 20:09 Leg - Left Wound Culture - Preliminary Gram Negative Xavi Gram Positive Cocci 08/17/18 20:50 Blood-Venous Blood Culture - Preliminary NO GROWTH AFTER 48 HOURS 08/17/18 20:30 Blood-Venous Blood Culture - Preliminary NO GROWTH AFTER 48 HOURS Most Recent Lab Values WBC 3.5 K/uL (4.8-10.8) L 08/19/18 04:25 RBC 2.73 Mil/uL (4.40-5.90) L 08/19/18 04:25 Hgb 9.4 g/dL (12.0-18.0) L 08/19/18 04:25 Hct 27.5 % (35.0-51.0) L 08/19/18 04:25 MCV 100.5 fl (80.0-94.0) H 08/19/18 04:25 MCH 34.3 pg (27.0-31.0) H 08/19/18 04:25 MCHC 34.1 g/dL (33.0-37.0) 08/19/18 04:25 RDW 17.1 % (11.5-14.5) H 08/19/18 04:25 Plt Count 212 K/uL (130-400) 08/19/18 04:25 MPV 7.3 fl (7.2-11.7) 08/19/18 04:25 Neut % (Auto) 70.2 % (50.0-75.0) 08/19/18 04:25 Lymph % (Auto) 16.9 % (20.0-40.0) L 08/19/18 04:25 [place] % (Auto) 11.3 % (0.0-10.0) H 08/19/18 04:25 Eos % (Auto) 0.9 % (0.0-4.0) 08/19/18 04:25 Baso % (Auto) 0.7 % (0.0-2.0) 08/19/18 04:25 Neut # (Auto) 2.5 K/uL (1.8-7.0) 08/19/18 04:25 Lymph # (Auto) 0.6 K/uL (1.0-4.3) L 08/19/18 04:25 [place] # (Auto) 0.4 K/uL (0.0-0.8) 08/19/18 04:25 Eos # (Auto) 0.0 K/uL (0.0-0.7) 08/19/18 04:25 Baso # (Auto) 0.0 K/uL (0.0-0.2) 08/19/18 04:25 PT 17.9 Seconds (9.8-13.1) H 08/18/18 06:00 INR 1.6 08/18/18 06:00 APTT 31.9 Seconds (25.6-37.1) 08/18/18 06:00 Sodium 142 mmol/l (132-148) 08/20/18 04:20 Potassium 3.7 MMOL/L (3.6-5.0) 08/20/18 04:20 Chloride 105 mmol/L (98-107) 08/20/18 04:20 Carbon Dioxide 26 mmol/L (22-30) 08/20/18 04:20 Anion Gap 15 (10-20) 08/20/18 04:20 BUN 101 mg/dl (9-20) H* 08/20/18 04:20 Creatinine 3.0 mg/dl (0.8-1.5) H 08/20/18 04:20 Est GFR ( Amer) 24 08/20/18 04:20 Est GFR (Non-Af Amer) 20 08/20/18 04:20 Random Glucose 113 mg/dL (75-110) H 08/20/18 04:20 Calcium 8.3 mg/dL (8.4-10.2) L 08/20/18 04:20 Phosphorus 5.7 mg/dl (2.5-4.5) H 08/20/18 04:20 Iron 35 ug/dL (49-181) L 08/20/18 04:20 TIBC 296 ug/dL (250-450) 08/20/18 04:20 % Saturation 12 % (20-55) L 08/20/18 04:20 Ferritin 66.6 ng/Ml (17.9-464) 08/20/18 04:20 Total Bilirubin 1.0 mg/dl (0.2-1.3) 08/17/18 15:30 AST 39 U/L (17-59) 08/17/18 15:30 ALT 28 U/L (21-72) 08/17/18 15:30 Alkaline Phosphatase 104 U/L (38-126) 08/17/18 15:30 Troponin I 0.0570 ng/mL (0.00-0.120) 08/17/18 15:30 NT-Pro-B Natriuret Pep 69298 pg/ml (0-900) H 08/18/18 06:00 Total Protein 6.9 G/DL (6.3-8.2) 08/17/18 15:30 Albumin 3.3 g/dL (3.5-5.0) L 08/17/18 15:30 Globulin 3.7 gm/dL (2.2-3.9) 08/17/18 15:30 Albumin/Globulin Ratio 0.9 (1.0-2.1) L 08/17/18 15:30 Vitamin B12 582 pg/mL (239-931) 08/18/18 06:00 25-OH Vitamin D Total 70.3 NG/ML (30.0-100.0) 08/20/18 04:20 Procalcitonin 0.11 NG/ML (0.19-0.49) L 08/18/18 06:00 Free T4 1.15 ng/dL (0.78-2.19) 08/18/18 12:00 TSH 3rd Generation 6.77 mIU/ML (0.46-4.68) H 08/18/18 06:00 Urine Color Yellow (YELLOW) 08/18/18 20:09 Urine Clarity Clear (Clear) 08/18/18 20:09 Urine pH 5.0 (5.0-8.0) 08/18/18 20:09 Ur Specific [place] 1.008 (1.003-1.030) 08/18/18 20:09 Urine Protein Negative mg/dL (NEGATIVE) 08/18/18 20:09 Urine Glucose (UA) Neg mg/dL (Normal) 08/18/18 20:09 Urine Ketones Negative mg/dL (NEGATIVE) 08/18/18 20:09 Urine Blood Negative (NEGATIVE) 08/18/18 20:09 Urine Nitrate Negative (NEGATIVE) 08/18/18 20:09 Urine Bilirubin Negative (NEGATIVE) 08/18/18 20:09 Urine Urobilinogen 0.2-1.0 mg/dL (0.2-1.0) 08/18/18 20:09 Ur Leukocyte Esterase Neg Zhang/uL (Negative) 08/18/18 20:09 Urine RBC (Auto) < 1 /hpf (0-3) 08/18/18 20:09 Urine Microscopic WBC < 1 /hpf (0-5) 08/18/18 20:09 Ur Squamous Epith Cells < 1 /hpf (0-5) 08/18/18 20:09 Hyaline Casts 0-2 /hpf (0-2) 08/18/18 20:09 Ur Random Creatinine 25.1 mg/dL 08/18/18 20:09 U Random Total Protein 667 mg/g creat (22-128) H 08/18/18 19:16 Ur Random Sodium 69 mmol/L 08/18/18 20:09 - Hospital Course Hospital Course: 87 yo M with pmhx of Afib, severe CHF: systolic and diastolic dysfunction with EF of 15% and CKD stage 4 presented to the ED with his son and due to progressive dyspnea and B/L LE swelling for the past 4 days. He was having difficulty breathing with productive cough. He used to be ambulatory with a cane and walker while being seen by home care who also provides feet care twice a week, however, he had been refusing to get up from the couch only to use the restroom. He was admitted for severe CHF exacerbation, stasis dermatitis with mild LE cellulitis with skin tear, and CKD. CBC, BNP 2400, bladder/renal u/s, CXR, EKG, Venous doppler- no DVT, Troponin negative x1, Blood cx-no growth @48hr. Wound Cx (prelim-Gram Negative Xavi, Gram + cocci), Gram Stain-(Gram + cocci, no polymorphic WBC)- on Ancef 1gm. PT eval recommended skilled rehab. Pt is tolerating oral intake and is hemodynamically stable for discharge to subacute rehab. - Date & Time of H&P Date of H&P: 08/17/18 Time of H&P: 20:34 Discharge Exam - Head Exam Head Exam: ATRAUMATIC, NORMAL INSPECTION, NORMOCEPHALIC - Eye Exam Eye Exam: EOMI, Normal appearance - ENT Exam ENT Exam: Mucous Membranes Moist - Respiratory Exam Respiratory Exam: Clear to PA & Lateral, NORMAL BREATHING PATTERN - Cardiovascular Exam Cardiovascular Exam: RRR, +S1, +S2 - GI/Abdominal Exam GI & Abdominal Exam: Normal Bowel Sounds, Soft - Extremities Exam Additional comments: LLE Stasis dermatitis with mild cellulitis and skin tear, edema, warm, wrapped in padmini bandage clean, dry, no drainage or blood noted. RLE Stasis dermatitis with mild cellulitis, edema, warm - Neurological Exam Neurological exam: Alert, Oriented x3 Discharge Plan - Discharge Medications Prescriptions: Cephalexin [cephalexin] 500 mg PO BID 7 Days #14 cap Furosemide [Lasix] 40 mg PO DAILY 30 Days #30 tab - Follow Up Plan Condition: FAIR Disposition: REHAB FACILITY/REHAB UNIT Instructions: Heart Failure (DC), Heart Failure (GEN), Pacemaker (DC), Pacemaker (GEN), Pulmonary Edema (DC), Pulmonary Edema (GEN), Cellulitis (DC), Cellulitis (GEN), Renal Failure Diet (DC), Ascites (DC), Ascites (GEN), Hypertension (DC), Hypertension (GEN) Additional Instructions: Needs assistance w/ all daily activities, Fall precaution, Walks w/ cane. Heart healthy, low fat, low cholesterol diet. Daily weight. Referrals: Dk Joya MD [Staff Provider] - [place] MD [Staff Provider] - Joycelyn Rodriguez MD [Staff Provider] - Eliseo Lorenzo DPM [Staff Provider] -
[2018-08-20 15:48] VITALS: RESP 20
[2018-08-20 16:42] VITALS: BP 116/68; PULSE 99; TEMP 98.5; O2SAT 96
--- NOTE | 2018-08-20 17:49 | CP.PCM.PN ---
Subjective - Date & Time of Evaluation Date of Evaluation: 08/20/18 Time of Evaluation: 17:48 - Subjective Subjective: NEPHROLOGY FOLLOW UP no events overnight PE: VS reviewed gen: nad sclera: anicteric op: clear neck :supple no thyromegaly cv: +s1+s2 no rub lungs: reduced at bases abd: soft nt/nd/ no organomegaly ext: 2+ edema w/ redness skin: redness b/l le psych: nml affect neuro: follows commands no focal defecity labs and imaging reviewed imp: ARF/ Anemia/ Azotemia/ Acute on Chronic systolic heart failure/ Secondary hyperpara/cellulitis/CKD 4 plan: continue with lasix no emergent indications for HD but will monitor closely avoid hypotension check vit D level, pt on weekly Vit D anemia work up, continue epogen dose abx for reduced egfr d/w primary team, planned for dc to subacute rehab Objective - Vital Signs/Intake and Output Vital Signs (last 24 hours): Temp Pulse Resp BP Pulse Ox 98.5 F 99 H 20 116/68 96 08/20/18 16:41 08/20/18 16:43 08/20/18 16:41 08/20/18 16:43 08/20/18 16:41 - Medications Medications: Current Medications Aspirin (Ecotrin) 81 mg PO DAILY [facility] Last Admin: 08/20/18 09:00 Dose: 81 mg Carvedilol (Coreg) 3.125 mg PO Q12 [facility] Last Admin: 08/20/18 09:02 Dose: 3.125 mg Enoxaparin Sodium (Lovenox) 30 mg SC DAILY [facility]; Protocol Last Admin: 08/20/18 09:01 Dose: 30 mg Epoetin Den (Procrit) 4,000 unit SC MWF [facility] Last Admin: 08/19/18 12:23 Dose: 4,000 unit Ergocalciferol (Drisdol 50,000 Intl Units Cap) 1 cap PO QWK [facility] Ferrous Sulfate (Feosol) 325 mg PO DAILY [facility] Last Admin: 08/20/18 09:00 Dose: 325 mg Finasteride (Proscar) 5 mg PO DAILY [facility] Last Admin: 08/20/18 08:59 Dose: 5 mg Folic Acid (Folic Acid) 1 mg PO DAILY [facility] Last Admin: 08/20/18 09:02 Dose: 1 mg Furosemide (Lasix) 40 mg PO DAILY [facility] Home Med (Febuxostat [Uloric]) 40 mg PO DAILY [facility] Last Admin: 08/20/18 08:59 Dose: 40 mg Hydroxyurea (Hydrea) 500 mg PO DAILY [facility] Last Admin: 08/20/18 08:59 Dose: 500 mg Cefazolin Sodium 1 gm/ Sodium (Chloride) 50 mls @ 50 mls/hr IVPB Q12 [facility]; Prot ocol Last Admin: 08/20/18 09:05 Dose: 50 mls/hr Isosorbide Mononitrate (Imdur Er) 30 mg PO DAILY [facility] Last Admin: 08/20/18 09:02 Dose: 30 mg Mexiletine HCl (Mexiletine) 150 mg PO Q8 [facility] Last Admin: 08/20/18 16:43 Dose: 150 mg Quurw-2-Sbuq Ethyl Esters (Lovaza) 1 gm PO Q12 [facility] Last Admin: 08/20/18 09:00 Dose: 1 gm Sevelamer Carbonate (Renvela) 800 mg PO TID [facility] Last Admin: 08/20/18 16:44 Dose: 800 mg Silver Sulfadiazine (Silvadene 1% 20 Gm) 1 ea TOP DAILY [facility] Last Admin: 08/20/18 09:01 Dose: 1 applic Tamsulosin HCl (Flomax) 0.4 mg PO DAILY [facility] Last Admin: 08/20/18 09:00 Dose: 0.4 mg Vitamin B Complex/Vit C/Folic Acid (Nephro-Terry) 1 tab PO DAILY [facility] Last Admin: 08/20/18 09:00 Dose: 1 tab - Labs Labs: 08/19/18 04:25 08/20/18 04:20 PT 17.9 Seconds (9.8-13.1) H 08/18/18 06:00 INR 1.6 08/18/18 06:00 APTT 31.9 Seconds (25.6-37.1) 08/18/18 06:00
--- NOTE | 2018-08-21 08:55 | PQF ---
PROVIDER RESPONSE TEXT: Dilated and hypertensive REVIEWER QUERY TEXT: Cardiomyopathy Type Cardiomyopathy is documented in the Medical Record. Please specify the type if known Such as: -- Alcoholic -- Congestive -- Constrictive -- Dilated -- Hypertensive -- Ischemic -- Obstructive Hypertrophic - IHSS -- Other Hypertrophic -- Other, please specify 08/18: Cardiology consult:Hx. includes Cardiomyopathy Assessment: Cardiomyopathy with Acute on Chronic CHF The patient's Clinical Indicators include: - Query created by: Margi Araya on 08/19/2018 11:37 AM Electronically signed by: [place] MD 08/21/2018 8:51 AM
[2018-08-21 11:11] LABS: ALBUMIN (PEP) 2.9 g/dL (3.8-4.8); ALPHA-1-GLOBULIN (PEP) 0.5 g/dL (0.2-0.3)
== END 2018-08-20 18:00 | DRG 291 ==
LOC: H.ER 13:59 → H.ERHOLD 19:16 → H.TEL 23:47
PROVIDERS: ADMIT Internal Medicine; ATTEND Internal Medicine
DX: I13.0 Hypertensive heart and chronic kidney disease with heart failure and stage 1 through stage 4 chronic kidney disease, or unspecified chronic kidney disease (principal); I50.43 Acute on chronic combined systolic (congestive) and diastolic (congestive) heart failure; N17.9 Acute kidney failure, unspecified; N18.4 Chronic kidney disease, stage 4 (severe); L03.115 Cellulitis of right lower limb; L03.116 Cellulitis of left lower limb; L97.828 Non-pressure chronic ulcer of other part of left lower leg with other specified severity; N25.81 Secondary hyperparathyroidism of renal origin; I87.2 Venous insufficiency (chronic) (peripheral); B95.2 Enterococcus as the cause of diseases classified elsewhere; I42.0 Dilated cardiomyopathy; I43 Cardiomyopathy in diseases classified elsewhere; I48.2 Chronic atrial fibrillation; D63.8 Anemia in other chronic diseases classified elsewhere; D47.3 Essential (hemorrhagic) thrombocythemia; I44.30 Unspecified atrioventricular block; N40.0 Benign prostatic hyperplasia without lower urinary tract symptoms; E78.00 Pure hypercholesterolemia, unspecified; H91.90 Unspecified hearing loss, unspecified ear; Z87.891 Personal history of nicotine dependence